=== PATIENT | female | born 1975 | race Caucasian/White ===

== ENCOUNTER 2023-05-18 10:45 | Emergency (ER) | payer OTHER, SELFPAY ==
--- NOTE | ~2023-05-18 | CT_ITS ---
EXAMINATION: CT HEAD WITHOUT CONTRAST CT CERVICAL SPINE WITHOUT CONTRAST CLINICAL INFORMATION: Head strike. COMPARISON: No relevant prior imaging. TECHNIQUE: Store Operations Manager images were obtained. CT imaging of the head and cervical spine was performed without contrast. Data was reformatted into multiplanar images at the acquisition workstation. This CT examination was performed using dose optimization techniques as appropriate, including one or more of the following: Automated exposure control, iterative reconstruction, and adjustment of technique factors (mA and/or kVp) according to patient size (this includes techniques or standardized protocols for targeted exams where dose is matched to indication/reason for exam). Fleischner Society criteria for the followup of incidental pulmonary nodules was implemented if appropriate. DLP: 932 mGy-cm. FINDINGS: Head: There is no acute intracranial hemorrhage or abnormal extra-axial collection. No intracranial mass effect or midline shift. Lateral and third ventricles are normal. No hydrocephalus. [place]-white matter differentiation is preserved and there is no evidence of acute territorial infarct. The calvarium and skull base are intact. Mastoid air cells and middle ear cavities are well aerated. No active paranasal sinus disease. Cervical spine: There is nonspecific reversal of the cervical lordosis. Alignment is otherwise normal. Vertebral body heights are preserved. No acute fracture. No abnormal prevertebral soft tissue swelling. C is not well assessed on this examination due to inherent limitations of CT without intrathecal contrast. Grossly no canal compromise. Asymmetric uncovertebral joint spurring causes moderate right neuroforaminal encroachment at C4-C5. Otherwise no substantial bony neuroforaminal encroachment. Visualized soft tissues of the neck are normal. Lung apices are clear. CT/CT head/brain wo IV con IMPRESSION: Head: Unremarkable CT scan of the head. No evidence of acute territorial infarct or hemorrhage. Cervical Spine: No acute fracture and no posttraumatic spinal subluxation. There is nonspecific reversal of the cervical lordosis. Grossly no evidence of canal compromise. Asymmetric uncovertebral joint spurring causes moderate right neuroforaminal encroachment at C4-C5.
--- NOTE | ~2023-05-18 | CT_ITS ---
EXAMINATION: CT HEAD WITHOUT CONTRAST CT CERVICAL SPINE WITHOUT CONTRAST CLINICAL INFORMATION: Head strike. COMPARISON: No relevant prior imaging. TECHNIQUE: Mathematical Scientist images were obtained. CT imaging of the head and cervical spine was performed without contrast. Data was reformatted into multiplanar images at the acquisition workstation. This CT examination was performed using dose optimization techniques as appropriate, including one or more of the following: Automated exposure control, iterative reconstruction, and adjustment of technique factors (mA and/or kVp) according to patient size (this includes techniques or standardized protocols for targeted exams where dose is matched to indication/reason for exam). Fleischner Society criteria for the followup of incidental pulmonary nodules was implemented if appropriate. DLP: 932 mGy-cm. FINDINGS: Head: There is no acute intracranial hemorrhage or abnormal extra-axial collection. No intracranial mass effect or midline shift. Lateral and third ventricles are normal. No hydrocephalus. [place]-white matter differentiation is preserved and there is no evidence of acute territorial infarct. The calvarium and skull base are intact. Mastoid air cells and middle ear cavities are well aerated. No active paranasal sinus disease. Cervical spine: There is nonspecific reversal of the cervical lordosis. Alignment is otherwise normal. Vertebral body heights are preserved. No acute fracture. No abnormal prevertebral soft tissue swelling. C is not well assessed on this examination due to inherent limitations of CT without intrathecal contrast. Grossly no canal compromise. Asymmetric uncovertebral joint spurring causes moderate right neuroforaminal encroachment at C4-C5. Otherwise no substantial bony neuroforaminal encroachment. Visualized soft tissues of the neck are normal. Lung apices are clear. CT/CT cervical spine wo IV con IMPRESSION: Head: Unremarkable CT scan of the head. No evidence of acute territorial infarct or hemorrhage. Cervical Spine: No acute fracture and no posttraumatic spinal subluxation. There is nonspecific reversal of the cervical lordosis. Grossly no evidence of canal compromise. Asymmetric uncovertebral joint spurring causes moderate right neuroforaminal encroachment at C4-C5.
[2023-05-18 11:06] VITALS: BP 156/87; PULSE 73; RESP 18; TEMP 36.9; O2SAT 100; BMI 30.7
--- NOTE | 2023-05-18 11:06 | ED.SYNCOPE ---
HPI - Syncope General Chief Complaint: Syncope Stated Complaint: Syncope 05/16 l Time Seen by Provider: 05/18/23 11:48 Source: patient, RN notes reviewed and old records reviewed Mode of arrival: ambulatory History of Present Illness HPI narrative: 47-year-old female with past medical history hypothyroid, HTN, presenting to the ED complaining of 2 syncopal episodes on 05/16/23 w/+head strike & LOC. Patient states initially stood up from living room and syncopized, witnessed by , striking posterior head. Denies seizure-like activity or incontinence/tongue biting. Admits afterwards continued to walk to kitchen & leaned over table and felt lightheaded/dizzy with mild nausea and syncopized again falling forward and then backwards with additional head strike. Reports mild headache and neck pain / soreness. Reports symptomatic improvement at present however call PCP today and they will not see her until she is evaluated at the ED. Denies vision change/ loss, CP/SOB, abdominal pain, nausea / vomiting, recent travel. Denies taking anticoagulation. MD complaint: loss of consciousness, felt faint and collapsed Onset (ago): day(s) Related Data Allergies Allergy/AdvReac Type Severity Reaction Status Date / Time No Known Allergies Allergy Verified 05/18/23 11:11 Review of Systems Review of Systems: Constitutional: No Fever, No Chills, No Fatigue, No Malaise ENT/Mouth: No Hearing loss, No Ear Pain, No Nasal Congestion, No Sinus Pain, No Hoarseness, No sore throat, No Rhinorrhea, No Swallowing Difficulty Eyes: No Eye Pain, No Swelling, No Redness, No Vision Changes Cardiovascular: No Chest Pain, No SOB, No Edema, No Palpitations Respiratory: No Cough, No Sputum, No Dyspnea Gastrointestinal: + Nausea, No Vomiting, No Diarrhea, No Constipation, No Abdominal pain Genitourinary: No irregular bleeding, No Dysuria, No Hematuria, No Urinary Incontinence/retention, No Flank Pain Musculoskeletal: No joint pain, + Myalgias, No Joint Swelling Skin: No Skin Lesions, No rash Neuro: No Weakness, No Numbness, No Paresthesias, +Loss of Consciousness, No Dizziness, +Headache Yes all other systems are reviewed and are negative Constitutional: Constitutional: Reports as per HPI Neurologic: Denies Abnormal speech present [facility] Past Medical History Attestation statement: The following information was validated with the patient. Source: old records reviewed Social History Social History Advance Directives: No Physical Exam Vital Signs: Vital Signs: Last Vital Signs Temp 98.4 F 05/18/23 11:06 Pulse 55 05/18/23 12:21 Resp 18 05/18/23 12:21 BP 120/68 05/18/23 12:21 Pulse Ox 99 05/18/23 12:21 O2 Del Method Room Air 05/18/23 12:21 BMI result Body Mass Index 30.7 Const: General: cooperative, healthy appearing, no acute distress, alert and awake Orientation/consciousness: patient oriented x3 Limitations: no limitations HEENT: Head: Yes normal to inspection, Yes atraumatic, No Mcghee's sign and No raccoon eyes Ears: hearing grossly normal bilaterally General nose exam: Normal external nose present Face and sinus: Yes normal facial exam Throat: Yes posterior oropharynx normal, Yes uvula midline, No uvula laterally displaced and No uvular edema Eyes: General: appearance normal, both eyes and all related structures Pupils: Equal, round and reactive pupils present EOM: EOMs intact bilaterally Neck: Neck: Yes normal visual inspection, Yes no meningeal signs and No anterior neck swelling Resp: Effort & Inspection: normal respiratory effort and no respiratory distress Auscultation: clear to auscultation bilaterally, no crackles and no wheezes Cardio: Rate: regular rate Heart sounds: S1 normal heart sound present and S2 normal heart sound present GI: Inspection: Yes normal to inspection Palpation (GI): Soft to palpation, nontender, no guarding and not rigid : General: Yes no CVA tenderness Back/Spine/Pelvis: Other: No midline cervical/thoracic/lumbar spinous tenderness/step-off or deformity Back: no CVA tenderness Skin: Rashes: no rashes Wounds: no wounds Neuro: General: patient oriented x3, gait normal, tone normal, moves all extremities, no meningeal signs, no focal motor deficits and CN's II-XI intact bilaterally Cranial nerves: Yes CN's II-XII intact bilaterally, Yes Equal, round and reactive pupils present and Yes Bilaterally intact EOM present Cognition (Neuro): normal cognition Speech: No Abnormal speech present Gait exam (Neuro): Normal gait present Motor exam (neuro): 5 motor strength present throughout and no tremor noted Extrem: General: Yes normal to inspection Course Course Course Narrative: This is an RME: Additional HPI, ROS, PE not included below will be deferred to primary provider. This is a [id number]-female, with a hx of hypertension, hypothyroidism, presenting to the emergency department with complaints of two episodes of syncope which occurred on thursday. Patient reports that on Thursday she had 2 episodes of syncope. Patient states that her witnessed these episodes. She believes that she struck the posterior head as she has some soreness on her posterior head. Patient states that the syncopal episodes for about 5 minutes apart. She admits that during the syncopal episode she did have some blurred vision. After these episodes her took her blood pressure in their 101/63 and 88/59. She is neurologically intact. No current pain. No chest pain or shortness of breath. Plan: EKG, labs, CT head, orthostatics -1305-- mild leukopenia 3.9. D-dimer WNL, PE unlikely - labs otherwise reassuring including negative troponin and hCG. Orthostatic vital signs negative -1532--CT head/brain wo IV con/CT cervical spine wo IV con IMPRESSION: Head: Unremarkable CT scan of the head. No evidence of acute territorial infarct or hemorrhage. Cervical Spine: No acute fracture and no posttraumatic spinal subluxation. There is nonspecific reversal of the cervical lordosis. Grossly no evidence of canal compromise. Asymmetric uncovertebral joint spurring causes moderate right neuroforaminal encroachment at C4-C5. Results discussed with patient including worrisome signs and symptoms and strict return precautions, and when to return to the emergency department. They verbalized understanding and feel safe for discharge at this time. Medications Administered Discontinued Medications Generic Name Dose Route Start Last Admin Trade Name Freq PRN Reason Stop Dose Admin Sodium Chloride 1,000 mls @ 999 mls/hr 05/18/23 12:15 05/18/23 15:14 Ns IV 05/18/23 13:15 Infused .Q1H1M EDILIA Infusion Medical Decision Making Medical Decision Making MDM Narrative: 47-year-old female with past medical history hypothyroid, HTN, presenting to the ED complaining of 2 syncopal episodes on 05/16/23 w/+head strike & LOC. Patient states initially stood up from living room and syncopized, witnessed by , striking posterior head. On exam vital signs stable, NAD, nontoxic appearing, no evidence of trauma, no midline spinous tenderness throughout or red flag symptoms. No incontinence or tongue biting. Abdomen soft -nontender. Concern for vasovagal syncope vs metabolic/infectious etiologies vs ?PE although denies SOB, no tachycardia/tachypnea or hypoxia. Low suspicion for dissection/ACS. rule out ICH /fracture. Lower suspicion for SAH plan: EKG, labs, UA, orthostatics, head/ C-spine CT, IVF, re-evaluate Please refer to course for remaining clinical decision making, interpretation of labs/imaging results, and discussions with consultants and/or family members. Differential Diagnosis Differential Diagnoses: The differential diagnosis associated with the presentation includes As above Admission/Observation Consideration of admission/observation: Escalation of care including admission/observation considered Lab Data MDM Lab Attestation statement: I reviewed the patient's lab results. 05/18/23 11:30 05/18/23 11:30 Labs: Lab Results 05/18/23 05/18/23 Range/Units 11:30 12:33 WBC 3.9 L (4.8-10.8) X10*3/uL RBC 4.35 (4.20-5.50) X10*6/uL Hgb 13.9 (12.0-16.0) g/dl Hct 40.2 (37.0-47.0) % MCV 92.4 (80.0-98.0) fL MCH 32.0 (27.0-33.0) pg MCHC 34.6 (31.0-35.0) g/dl RDW 12.4 (11.0-16.0) % Plt Count 193 (160-400) X10*3/uL MPV 9.6 (9.4-12.3) fL Immature Gran % (Auto) 0.3 (0.0-0.4) % Neut % (Auto) 57.8 (45-73) % Lymph % (Auto) 32.6 (20-40) % [place] % (Auto) 7.3 (2-11) % Eos % (Auto) 1.0 (0-4) % Baso % (Auto) 1.0 (0-2) % Lymph # (Auto) 1.3 (1.2-4.9) X10*3/uL [place] # (Auto) 0.3 (0.1-1.2) X10*3/uL Eos # (Auto) 0.0 (0.0-0.4) X10*3/uL Baso # (Auto) 0.0 (0.0-0.2) X10*3/uL Abs Immat Gran (auto) 0.01 (0.00-0.03) X10*3/uL Absolute Neuts (auto) 2.2 (2.0-8.3) x10*3/uL Absolute Nucleated RBC 0.000 (0.0-0.012) X10*3/uL Nucleated RBC % (auto) 0.0 (0.0-0.2) /100WBC D-Dimer High Sensitivty < 150 NG/ML Sodium 138 (135-145) mmol/L Potassium 3.8 (3.3-5.1) mmol/L Chloride 107 (96-108) mmol/L Carbon Dioxide 26 (22-29) mmol/L Anion Gap 9 L (12-20) BUN 10 (9-16) mg/dL Creatinine 0.71 (0.5-1.4) mg/dL Estim Creat Clear Calc 98.2 Estimated GFR > 60 Random Glucose 82 (60-115) mg/dL Calcium 9.0 (8.4-10.2) mg/dL Magnesium 1.9 (1.6-2.6) mg/dL Total Bilirubin 0.6 (0.0-1.0) mg/dL Direct Bilirubin 0.2 (0.0-0.5) mg/dL AST 14 (5-31) U/L ALT 10 (0-31) U/L Alkaline Phosphatase 46 (39-117) U/L Troponin I High Sens < 2.7 (<3.5-17.0) ng/L Total Protein 6.9 (6.5-8.0) g/dL Albumin 3.9 (3.5-5.0) g/dL Beta HCG, Quant < 2 mIU/mL Independent Interpretation I performed an independent interpretation of an: EKG ( my interpretation EKG sinus bradycardia rate of 58. QRS 80. QTC 384. No STEMI. No priors to compare) Radiology Impression Discussion of test interpretation with radiology: I have reviewed the radiologist's reading. External Record Review External record reviewed: Inpatient record, Office record, Outpatient record, Prior outpatient labs, Prior outpatient radiology, Primary care record and Outside ED record Tests considered The following testing was considered but not selected: As above Discharge Plan Discharge Clinical Impression: Vasovagal syncope Patient Disposition: Home, Self-Care Instructions: Syncope (DC) Additional Instructions: your blood work is reassuring. Head CT is unremarkable. your cervical spine CT shows some neuroforaminal encroachment on C4/C5, follow-up with her PCP make sure your staying hydrated. Change positions slowly Follow-up with your doctor Symptoms persistent worsening of recurrent passing out episodes please return to the emergency department Referrals: Chay Betts III, MD [Primary Care Provider] - 3 days Interventions: ED Discharge Assessment Last Done: 05/18/23 15:57 Discharge Date/Time: 05/18/23 15:57
--- NOTE | 2023-05-18 11:14 | ECG_ITS ---
Test Reason : syncope Blood Pressure : / mmHG Vent. Rate : 058 BPM Atrial Rate : 058 BPM P-R Int : 180 ms QRS Dur : 080 ms QT Int : 392 ms P-R-T Axes : 032 011 005 degrees QTc Int : 384 ms Sinus bradycardia Otherwise normal ECG No previous ECGs available Referred By: Ayesha King Electronically Signed By:ANABELLA BENEDICT MD
[2023-05-18 11:34] LABS: MANUAL DIFF FLAG NO
[2023-05-18 11:36] LABS: Hematocrit 40.2 % (37.0-47.0); Hemoglobin 13.9 g/dl (12.0-16.0); Imm Gran Abs Auto 0.01 X10*3/uL (0.00-0.03); Imm Gran Pct Auto 0.3 % (0.0-0.4); Lymphocytes Absolute Auto 1.3 X10*3/uL (1.2-4.9); Lymphocytes Percent Auto 32.6 % (20-40); Mean Corpuscular HGB Conc 34.6 g/dl (31.0-35.0); Mean Corpuscular Volume 92.4 fL (80.0-98.0); Mean Platelet Volume 9.6 fL (9.4-12.3); Monocytes Absolute Auto 0.3 X10*3/uL (0.1-1.2); Monocytes Percent Auto 7.3 % (2-11); Neutrophils Absolute Auto 2.2 x10*3/uL (2.0-8.3); Neutrophils Percent Auto 57.8 % (45-73); Platelet Count 193 X10*3/uL (160-400); Red Blood Count 4.35 X10*6/uL (4.20-5.50); Red Cell Distribution Width 12.4 % (11.0-16.0); White Blood Count 3.9 X10*3/uL (4.8-10.8)
[2023-05-18 11:53] VITALS: BP 115/65; BP 127/66; PULSE 58; PULSE 59; RESP 14; O2SAT 99
[2023-05-18 11:55] VITALS: BP 126/77; BP 155/93; PULSE 58; PULSE 67
[2023-05-18 11:56] LABS: Alanine Aminotransferase 10 U/L (0-31); Albumin Level 3.9 g/dL (3.5-5.0); Alkaline Phosphatase 46 U/L (39-117); Anion Gap 9 (12-20); Aspartate Amino Transferase 14 U/L (5-31); Bilirubin Direct 0.2 mg/dL (0.0-0.5); Bilirubin Total 0.6 mg/dL (0.0-1.0); Blood Urea Nitrogen 10 mg/dL (9-16); Carbon Dioxide 26 mmol/L (22-29); Chloride 107 mmol/L (96-108); Creatinine Clr Calc Pharmacy 98.2; Estimated Glomerular Filt Rate > 60; Glucose Random 82 mg/dL (60-115); Magnesium 1.9 mg/dL (1.6-2.6); Potassium 3.8 mmol/L (3.3-5.1); Sodium 138 mmol/L (135-145); Total Protein 6.9 g/dL (6.5-8.0)
[2023-05-18 11:58] LABS: HCG Quantitative < 2 mIU/mL; Troponin-I High Sensitivity < 2.7 ng/L (<3.5-17.0)
[2023-05-18 12:21] VITALS: BP 120/68; PULSE 55; RESP 18; O2SAT 99
[2023-05-18] MEDS: 0.9 % Sodium Chloride 1,000 ML 999 ML IV (12:35)
--- NOTE | 2023-05-18 12:40 | PC.NURSE ---
20g iv inserted LAC. fluids hung as documented. denies pain, vss.
[2023-05-18 12:46] LABS: D Dimer High Sensitivity < 150 NG/ML
== END 2023-05-18 15:57 | disposition home or self-care (01) ==
PROVIDERS: Physician Assistant; Physician Assistant Medical; Emergency Provider Student in an Organized Health Care Education/Training Program; PCP Internal Medicine
DX: R55 Syncope and collapse (principal); R11.2 Nausea with vomiting, unspecified; R00.1 Bradycardia, unspecified; M54.2 Cervicalgia; Z79.899 Other long term (current) drug therapy
CPT/HCPCS: 36415; 70450; 72125; 80048; 80076; 83735; 84484; 84702; 85025; 85379; 93005; 96360; 96361; 99284

== ENCOUNTER 2023-06-07 19:13 | Emergency (ER) | payer OTHER, SELFPAY ==
--- NOTE | ~2023-06-07 | XR_ITS ---
EXAMINATION: XR FOOT, LEFT CLINICAL INFORMATION: Acute pain and swelling COMPARISON: None available. TECHNIQUE: AP, lateral, and oblique views of the left foot. FINDINGS: Degenerative changes are present at the first and second MTP joints with osteophytes. There is minimal hallux valgus. No acute fractures are seen. A plantar calcaneal spur is present as is enthesopathy at the Achilles tendon insertion. No ankle joint effusion. XR/XR foot LT min 3V IMPRESSION: Degenerative changes as described above. No acute fracture.
--- NOTE | ~2023-06-07 | US_ITS ---
EXAMINATION: US VENOUS ULTRASOUND WITH DOPPLER LOWER EXTREMITY, LEFT CLINICAL INFORMATION: Pain and swelling. COMPARISON: None available. TECHNIQUE: Ultrasound of the deep veins is performed from the hip to the calf with compression sonography and color and pulse Doppler assessment. Spectral analysis with color-flow imaging is performed. FINDINGS: There is normal venous compression and respiratory variation and augmented flow. The visualized common femoral vein, superficial femoral vein, profunda femoral vein, popliteal vein, and the trifurcation region shows no evidence of deep venous thrombosis. There is no significant popliteal fossa cyst. Prominent left groin lymph nodes are noted. There is a 4.1 x 1.1 x 1.1 cm essentially anechoic subcutaneous structure/collection along the medial distal ankle without associated flow.. If the patient's symptoms persist, followup ultrasound in 5 days 7 days might be of value to exclude proximal propagation from a non-visualized calf vein. US/US venous duplex LE IMPRESSION: No DVT demonstrated in the left lower extremity. 4.1 x 1.1 x 1.1 cm collection lower medial ankle possibly a small hematoma of uncertain acuity. Correlation needed.
--- NOTE | ~2023-06-07 | XR_ITS ---
EXAMINATION: XR CHEST CLINICAL INFORMATION: Chest pain COMPARISON: None available. TECHNIQUE: 2 views of the chest were obtained. FINDINGS: No significant abnormality is noted involving the heart, lungs, mediastinum, bony thorax or soft tissues. XR/XR chest 2V IMPRESSION: Unremarkable examination.
[2023-06-07 19:27] VITALS: BP 162/100; PULSE 70; RESP 18; TEMP 36.9; O2SAT 100; BMI 29.6
[2023-06-07 23:00] VITALS: BP 123/76; PULSE 59; RESP 16; TEMP 37.1; O2SAT 97
--- NOTE | 2023-06-07 23:48 | ED_ITS ---
HPI - General Adult General Chief complaint: General Medical Stated complaint: left foot swelling 1wk/hard time breathing started Time Seen by Provider: 06/07/23 23:01 Source: patient, family () and RN notes reviewed Mode of arrival: ambulatory Limitations: no limitations History of Present Illness HPI narrative: 47-year-old female with past medical history significant for hypertension, hypothyroidism presents for evaluation of left foot pain and swelling. Patient states that the foot started to swell 6 days ago. She denies any recent trauma to the foot. She did present to this ED on 05/18/2023, 18 days ago for a syncopal episode happened 2 days prior to that visit She did not have any foot pain or swelling at that time The patient was worked up for syncope and ultimately discharged home. She had labs including D-dimer, CT head and C-spine, EKG, and was ultimately discharged home. Patient reports that she works at [employer] and is on her feet all day throughout her shift She has pain mostly to the left byrne and this is sometimes itchy. She also reports swelling to the top of the left foot Related Data Allergies Allergy/AdvReac Type Severity Reaction Status Date / Time No Known Allergies Allergy Verified 06/07/23 19:33 Review of Systems 2 Constitutional: Constitutional: Denies chills and Denies fever(s) ENT: Denies sore throat Cardiovascular: Cardiovascular: Reports chest pain and Reports dyspnea Respiratory: Respiratory: Denies cough and Reports dyspnea Gastrointestinal: Gastrointestinal: Denies abdominal pain, Denies nausea and Denies vomiting Musculoskeletal: Musculoskeletal: Reports back pain Integumentary/Breasts: Skin/Breast: Denies rash PMFSH Social History Social History Advance Directives: No Advance Directives Information Provided: Yes Physical Exam ED Vital Signs: Vital Signs - 24 hr 06/07/23 19:27 06/07/23 23:00 06/08/23 00:00 Temperature 98.4 F 98.7 F 97.9 F Pulse Rate 70 59 57 Respiratory Rate 18 16 16 Blood Pressure 162/100 H 123/76 116/79 Pulse Oximetry 100 97 98 Oxygen Delivery Method Room Air Room Air Room Air BMI result Body Mass Index 29.6 Const General: healthy appearing, comfortable, no acute distress, alert and awake Nutritional Appearance: well nourished Orientation/consciousness: patient oriented x3 HENMT Head: Yes normocephalic and Yes atraumatic Eyes Eyelids: Yes eyelids normal Conjunctivae: conjunctivae normal Sclerae: sclerae normal Corneas: corneas normal Pupils: Equal, round and reactive pupils present EOM: EOMs intact bilaterally Neck Neck: Yes full ROM Resp Effort & Inspection: normal respiratory effort, able to speak in complete sentences, no audible wheezes and not labored Auscultation: clear to auscultation bilaterally Cardio Rate: regular rate Rhythm: regular rhythm Skin General skin exam: elasticity normal Neuro General: patient oriented x3 Cranial nerves: Yes Equal, round and reactive pupils present and Yes Bilaterally intact EOM present Cognition (Neuro): normal cognition Extrem Other: Patient has mild edema to the dorsal left foot. There is maybe trace edema to the distal left lower extremity. No pitting. No calf tenderness or palpable cords. The patient does have mild tenderness in the posterior knee/popliteal fossa. Course Reevaluation(s) Reevaluation #1: Patient's ultrasound of the leg shows a 4 cm fluid collection to the medial left ankle. This is most consistent with a hematoma. The patient has no erythema, increased warmth to suggest infection. The rest of the workup was unremarkable. Patient will be discharged to follow-up with PCP. She had negative D-dimer 18 days ago, no evidence of DVT Time: 01:37 Medical Decision Making Medical Decision Making [facility] Narrative: 47-year-old female presents for evaluation of atraumatic left lower extremity swelling, is available chest pain. She was seen here 18 days ago for syncope. She had negative workup at that time. Will repeat labs. Would ultrasound left lower extremity to rule out DVT but she did have a negative D-dimer 18 days ago. Currently patient is asymptomatic. Her vital signs are within normal limits therefore making PE less likely. Further workup as indicated by results and patient course Differential Diagnosis Differential Diagnoses: The differential diagnosis associated with the presentation includes Like edema Dependent edema DVT Peripheral vascular disease Lymphedema PE Moreno cyst Lab Data [facility] Lab Attestation statement: I reviewed the patient's lab results. No leukocytosis. The patient is a mild leukopenia to 4.2. This is slightly improved to the her visit from 2 and half weeks ago. No anemia. No significant electrolyte abnormalities. Negative BNP, negative troponin 06/08/23 00:16 06/08/23 00:16 Labs: Lab Results 06/08/23 06/08/23 Range/Units 00:16 00:36 WBC 4.2 L (4.8-10.8) X10*3/uL RBC 4.40 (4.20-5.50) X10*6/uL Hgb 14.3 (12.0-16.0) g/dl Hct 40.8 (37.0-47.0) % MCV 92.7 (80.0-98.0) fL MCH 32.5 (27.0-33.0) pg MCHC 35.0 (31.0-35.0) g/dl RDW 12.1 (11.0-16.0) % Plt Count 215 (160-400) X10*3/uL MPV 9.8 (9.4-12.3) fL Immature Gran % (Auto) 0.2 (0.0-0.4) % Neut % (Auto) 47.7 (45-73) % Lymph % (Auto) 41.0 H (20-40) % [place] % (Auto) 8.5 (2-11) % Eos % (Auto) 1.9 (0-4) % Baso % (Auto) 0.7 (0-2) % Lymph # (Auto) 1.7 (1.2-4.9) X10*3/uL [place] # (Auto) 0.4 (0.1-1.2) X10*3/uL Eos # (Auto) 0.1 (0.0-0.4) X10*3/uL Baso # (Auto) 0.0 (0.0-0.2) X10*3/uL Abs Immat Gran (auto) 0.01 (0.00-0.03) X10*3/uL Absolute Neuts (auto) 2.0 (2.0-8.3) x10*3/uL Absolute Nucleated RBC 0.000 (0.0-0.012) X10*3/uL Nucleated RBC % (auto) 0.0 (0.0-0.2) /100WBC PT 11.3 (11.1-13.3) SEC INR 0.9 (0.9-1.1) APTT 34.2 (26.0-36.4) SEC Sodium 137 (135-145) mmol/L Potassium 3.8 (3.3-5.1) mmol/L Chloride 105 (96-108) mmol/L Carbon Dioxide 25 (22-29) mmol/L Anion Gap 11 L (12-20) BUN 16 (9-16) mg/dL Creatinine 0.73 (0.5-1.4) mg/dL Estim Creat Clear Calc 93.8 Estimated GFR > 60 Random Glucose 82 (60-115) mg/dL Calcium 8.8 (8.4-10.2) mg/dL Total Bilirubin 0.5 (0.0-1.0) mg/dL AST 14 (5-31) U/L ALT 8 (0-31) U/L Alkaline Phosphatase 43 (39-117) U/L Troponin I High Sens < 2.7 (<3.5-17.0) ng/L B-Natriuretic Peptide 10 (<100) pg/mL Total Protein 7.1 (6.5-8.0) g/dL Albumin 4.1 (3.5-5.0) g/dL Beta HCG, Quant < 2 mIU/mL Urine Color Yellow Urine Appearance Clear Urine pH 6.0 (5.0-9.0) Ur Specific [place] 1.020 (1.005-1.025) Urine Protein Negative (Neg-Trace) mg/dL Urine Glucose (UA) Negative (Negative) mg/dL Urine Ketones Negative (Negative) mg/dL Urine Blood Negative (Negative) Urine Nitrite Negative (Negative) Ur Leukocyte Esterase Negative (Negative) Urine RBC 3-5 H (0-2) /HPF Urine WBC 0-5 (0-5) /HPF Ur Squamous Epith Cells 3-5 (0-2) /HPF Urine Bacteria None Seen (None Seen) Hyaline Casts 0-2 (0-2) /LPF Independent Interpretation I performed an independent interpretation of an: Plain X-Ray (Chest x-ray is clear, foot x-ray without evidence of fracture.) Radiology Impression Discussion of test interpretation with radiology: I have reviewed the radiologist's reading. Radiologist Impression: Chest x-ray is unremarkable Foot x-ray shows degenerative changes, no acute fracture Ultrasound of lower extremity shows 4.1 x 1.1 x 1.1 cm collection left medial ankle possibly a small hematoma Discharge Plan Discharge Clinical Impression: Hematoma of left lower extremity Patient Disposition: Home, Self-Care Instructions: Contusion in Adults (ED) Additional Instructions: Your workup in the ER today was reassuring. Your ultrasound did show what looks to be a 4 cm hematoma in the area of swelling to your left foot/ankle There is no evidence of DVT/blood clots Follow-up with your primary doctor Elevate the leg above your heart and apply ice every 4 hours for 10-15 minutes
[2023-06-08] VITALS: BP 116/79; PULSE 57; RESP 16; TEMP 36.6; O2SAT 98
[2023-06-08 00:23] LABS: MANUAL DIFF FLAG NO
[2023-06-08 00:25] LABS: Basophils Percent Auto 0.7 % (0-2); Eosinophils Absolute Auto 0.1 X10*3/uL (0.0-0.4); Eosinophils Percent Auto 1.9 % (0-4); Hematocrit 40.8 % (37.0-47.0); Hemoglobin 14.3 g/dl (12.0-16.0); Imm Gran Abs Auto 0.01 X10*3/uL (0.00-0.03); Imm Gran Pct Auto 0.2 % (0.0-0.4); Lymphocytes Absolute Auto 1.7 X10*3/uL (1.2-4.9); Mean Corpuscular Hemoglobin 32.5 pg (27.0-33.0); Mean Corpuscular Volume 92.7 fL (80.0-98.0); Mean Platelet Volume 9.8 fL (9.4-12.3); Monocytes Absolute Auto 0.4 X10*3/uL (0.1-1.2); Monocytes Percent Auto 8.5 % (2-11); Neutrophils Percent Auto 47.7 % (45-73); Platelet Count 215 X10*3/uL (160-400); Red Cell Distribution Width 12.1 % (11.0-16.0); White Blood Count 4.2 X10*3/uL (4.8-10.8)
[2023-06-08 00:33] LABS: INTERNATIONAL NORM RATIO 0.9 (0.9-1.1); Prothrombin Time 11.3 SEC (11.1-13.3)
[2023-06-08 00:36] LABS: Partial Thromboplastin Time 34.2 SEC (26.0-36.4)
[2023-06-08 00:42] LABS: Appearance Urine Clear; Color Urine Yellow; Glucose Urine UA Negative (Negative); Leukocyte Esterase Urine Negative (Negative); Nitrite Urine Negative (Negative); Urine Blood Negative (Negative); Urine Ketones Negative (Negative); Urine Protein Negative (Neg-Trace)
[2023-06-08 00:44] LABS: B Type Natriuretic Peptide 10 pg/mL (<100); HCG Quantitative < 2 mIU/mL; Troponin-I High Sensitivity < 2.7 ng/L (<3.5-17.0)
[2023-06-08 00:47] LABS: Bacteria Urine None Seen (None Seen); Hyaline Casts Urine 0-2 /LPF (0-2); WBC Urine 0-5 /HPF (0-5)
[2023-06-08 01:34] LABS: Alanine Aminotransferase 8 U/L (0-31); Albumin Level 4.1 g/dL (3.5-5.0); Alkaline Phosphatase 43 U/L (39-117); Anion Gap 11 (12-20); Aspartate Amino Transferase 14 U/L (5-31); Bilirubin Total 0.5 mg/dL (0.0-1.0); Blood Urea Nitrogen 16 mg/dL (9-16); Calcium 8.8 mg/dL (8.4-10.2); Carbon Dioxide 25 mmol/L (22-29); Chloride 105 mmol/L (96-108); Creatinine Clr Calc Pharmacy 93.8; Estimated Glomerular Filt Rate > 60; Glucose Random 82 mg/dL (60-115); Potassium 3.8 mmol/L (3.3-5.1); Sodium 137 mmol/L (135-145); Total Protein 7.1 g/dL (6.5-8.0)
== END 2023-06-08 02:41 | disposition home or self-care (01) ==
PROVIDERS: Physician Assistant; Emergency Provider Emergency Medicine; PCP Internal Medicine
DX: S80.12XA Contusion of left lower leg, initial encounter (principal); R60.0 Localized edema; I10 Essential (primary) hypertension; M79.672 Pain in left foot; R07.89 Other chest pain; R06.02 Shortness of breath; X58.XXXA Exposure to other specified factors, initial encounter; Y93.9 Activity, unspecified; Y92.9 Unspecified place or not applicable; Y99.9 Unspecified external cause status; Z79.899 Other long term (current) drug therapy
CPT/HCPCS: 36415; 71046; 73630; 80053; 81001; 83880; 84484; 84702; 85025; 85610; 85730; 93971; 99284

== ENCOUNTER 2024-02-20 08:39 | Inpatient (IN) | payer OTHER, SELFPAY ==
[2024-02-20] VITALS (9 sets, daily range): BP systolic 103–139; BP diastolic 50–88; PULSE 54–75; RESP 12–18; TEMP 36.5–37.3; O2SAT 97–99; BMI 30.1
--- NOTE | ~2024-02-20 | CT_ITS ---
EXAMINATION: CTA head and neck with and without contrast CLINICAL INFORMATION: Headache, neck pain, dizziness, off balance COMPARISON: None available. TECHNIQUE: Test bolus sequences followed by intravenous administration of 70 mL of Omnipaque 350 contrast. Helical imaging was performed in the axial plane from the skull vertex to the thoracic inlet. Delayed postcontrast imaging of the head was also performed. The data was processed at the arrt technologist workstation for generation of MIP sequences. Angled MIPs and volume rendered reformatted images were also generated at an offline 3D workstation. Stenoses are assessed in accordance with NASCET criteria unless otherwise indicated. This CT examination was performed using dose optimization techniques as appropriate, variously including the following: *Automated exposure control *Adjustment of mA and/or kV according to patient size (this includes techniques or standardized protocols for targeted exams where dose is matched to indication/reason for exam; i.e. extremities or head) *Use of iterative reconstruction technique DLP: 2095 mGy-cm FINDINGS: BRAIN: No acute intracranial hemorrhage or infarct. The badillo-white matter differentiation is preserved. No midline shift or hydrocephalus. No acute extra-axial fluid collection. The osseous structures are unremarkable. No orbital pathology. The paranasal sinuses and mastoid air cells are clear. CTA NECK: Common origin of the innominate and left common carotid artery, normal variant. The innominate and bilateral subclavian arteries are patent. The origins and cervical segments of the common carotid arteries as well as the common carotid artery bifurcations are patent bilaterally. The cervical segments of the internal carotid arteries are also patent bilaterally. Nondominant left vertebral artery. The origins of the vertebral arteries are patent bilaterally. There is asymmetrically low contrast attenuation through the entire segment of the left cervical vertebral artery with near complete loss of contrast opacification within the mid to distal left V2 and complete occlusion of the entire segment of the left intracranial vertebral artery. No other site of hemodynamically significant stenosis, dissection: or aneurysm. The visualized branches of the external carotid arteries are unremarkable. CTA HEAD: Anterior circulation: The petrous, cavernous, and supraclinoid segments of the internal carotid arteries are patent bilaterally. The major branches of the anterior and middle cerebral arteries as well as the anterior communicating artery complex are patent. No large vessel occlusion, saccular aneurysm, or dissection. Posterior circulation: There is complete occlusion of the left intracranial vertebral artery with reconstitution in the right distal left V4. The right intracranial vertebral artery is normal in caliber and patent. The basilar artery is normal in caliber and course. The posterior cerebral and superior cerebellar arteries arise normally from the basilar summit. No aneurysm. On delayed imaging, the venous structures demonstrate normal contrast opacification. No filling defect. No abnormal intraparenchymal enhancement. Soft tissues: No suspicious neck mass or cervical adenopathy. Lungs: Clear. Bones: No acute osseous abnormality. No lytic or blastic osseous lesions. CT/CT angio head neck IMPRESSION: -CT head demonstrates no acute intracranial hemorrhage or infarct. 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 No other site of large vessel occlusion or hemodynamically significant stenosis.
--- NOTE | ~2024-02-20 | MR_ITS ---
EXAMINATION: MR BRAIN WITHOUT CONTRAST CLINICAL INFORMATION: Left vertebral artery occlusion,? CVA COMPARISON: CTA head and neck with and without contrast same day TECHNIQUE: MRI of the brain was obtained using routine sequences without contrast. FINDINGS: No acute intracranial hemorrhage or infarct. Several scattered periventricular and deep white matter T2/FLAIR hyperintensities. No midline shift or hydrocephalus. No acute extra-axial fluid collections. The osseous structures are unremarkable. The pituitary gland, pineal gland and remaining midline structures are unremarkable. No orbital pathology. The paranasal sinuses and mastoid air cells are clear. MR/MR head/brain wo con IMPRESSION: -No acute intracranial hemorrhage or infarct. -Several scattered periventricular and deep white matter T2/FLAIR hyperintensities are nonspecific but can be seen in the setting of chronic microvascular ischemic disease.
--- NOTE | 2024-02-20 08:55 | ED.GENADULT ---
HPI - General Adult General Chief complaint: Dizziness Stated complaint: dizzy off balance Time Seen by Provider: 02/20/24 08:54 Source: patient, RN notes reviewed and old records reviewed History of Present Illness ED Provider: Aline Mackenzie PA-C HPI narrative: 48-year-old female with past medical history of hypothyroid and hypertension, presenting to the ED complaining acute on chronic neck pain/stiffness x 2 days with associated headache and room spinning dizziness/off balance since this morning at 02:00AM. Reports episode blurry vision which is resolved at present, nausea, chills and diaphoresis. Denies vision loss, vomiting, CP/SOB, back pain Related Data Allergies Allergy/AdvReac Type Severity Reaction Status Date / Time No Known Allergies Allergy Verified 02/20/24 08:46 Review of Systems Review of Systems: Constitutional: No Fever, + Chills, + diaphoresis ENT/Mouth: No Ear Pain, No Nasal Congestion, No sore throat, No Rhinorrhea, No Swallowing Difficulty Cardiovascular: No Chest Pain, No SOB Respiratory: No Cough Gastrointestinal: + Nausea, No Vomiting, No Diarrhea, No Constipation, No Abdominal pain Genitourinary: No Dysuria, No Urinary Frequency, No Hematuria, No Urinary Incontinence/retention Musculoskeletal: No joint pain, No Myalgias, No Joint Swelling Skin: No Skin Lesions, No rash Neuro: No Weakness, No Numbness, No Paresthesias, +YOU, + dizziness, + off balance Yes all other systems are reviewed and are negative Constitutional: Constitutional: Reports as per [facility] Past Medical History Attestation statement: The following information was validated with the patient. Source: old records reviewed Social History Social History Advance Directives: No Advance Directives Information Provided: Yes Do you have a plan to hurt others: No Plan Physical Exam ED Vital Signs: Vital Signs - 24 hr 02/20/24 08:42 02/20/24 09:22 02/20/24 11:48 Temperature 97.7 F Pulse Rate 63 54 57 Respiratory Rate 18 Blood Pressure 137/85 113/68 139/85 Pulse Oximetry 99 Oxygen Delivery Method Room Air 02/20/24 11:48 Temperature Pulse Rate 54 Respiratory Rate Blood Pressure 139/82 Pulse Oximetry Oxygen Delivery Method BMI result Body Mass Index 30.1 Const General: cooperative, healthy appearing, no acute distress, alert and awake Orientation/consciousness: patient oriented x3 Limitations: no limitations HENMT Head: Yes normal to inspection and Yes atraumatic Ears: hearing grossly normal bilaterally General nose exam: Normal external nose present Face and sinus: Yes normal facial exam Throat: Yes posterior oropharynx normal, Yes tonsils normal, Yes uvula midline and No peritonsillar mass Eyes General: appearance normal, both eyes and all related structures Pupils: Equal, round and reactive pupils present EOM: EOMs intact bilaterally Neck Other: No midline cervical spinous tenderness or reproducible MSK/paraspinal tenderness. + pain elicited with rightward rotation of neck Neck: Yes normal visual inspection and Yes no meningeal signs Resp Effort & Inspection: normal respiratory effort and no respiratory distress Auscultation: clear to auscultation bilaterally Cardio Rate: regular rate Heart sounds: S1 normal heart sound present and S2 normal heart sound present GI Inspection: Yes normal to inspection Palpation (GI): Soft to palpation, nontender, no guarding and not rigid Skin Rashes: no rashes Wounds: no wounds Neuro General: patient oriented x3, tone normal, moves all extremities, no meningeal signs, no focal motor deficits and CN's II-XI intact bilaterally Cranial nerves: Yes CN's II-XII intact bilaterally and Yes Equal, round and reactive pupils present Gait exam (Neuro): Other gait observations present (Ambulating with slow cautious gait. No ataxia) Motor exam (neuro): 5/5 motor strength present throughout, Pronator motor function not present and no tremor noted Coordination: [id number] test normal Romberg Test: Negative Extrem General: Yes normal to inspection and Yes no pedal edema NIH Stroke Scale Internal: Initial- Upon Arrival Level of Consciousness: Alert Level of Consciousness Questions: Answers both questions correctly Level of Consciousness Commands: Performs both tasks correctly Best Gaze: Normal Visual: No visual loss Facial Palsy: Normal Motor Arm (Right): No drift Motor Arm (Left): No drift Motor Leg (Right): No drift Motor Leg (Left): No drift Limb Ataxia: Absent Sensory: Normal Best Language: No aphasia Dysarthia: Normal Extinction and Inattention: No abnormality Score: 0 Course Course Course Narrative: -labs unremarkable. Viral studies negative CT angio head neck IMPRESSION: -CT head demonstrates no acute intracranial hemorrhage or infarct. 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 No other site of large vessel occlusion or hemodynamically significant stenosis. > case discussed with Neurology, Dr. Cohn who recommended admission for brain MRI and initiation of low-dose ASA and Plavix. -will admit to hospitalist service Medications Administered Discontinued Medications Generic Name Dose Route Start Last Admin Trade Name Arthur PRN Reason Stop Dose Admin Acetaminophen 975 mg 02/20/24 09:21 02/20/24 10:08 Acetaminophen 325 Mg Tablet PO 02/20/24 09:22 975 mg ONCE ONE Administration Sodium Chloride 1,000 mls @ 999 mls/hr 02/20/24 09:30 02/20/24 09:36 Ns IV 02/20/24 10:30 999 mls/hr .Q1H1M EDILIA Administration Iohexol 70 ml 02/20/24 10:46 02/20/24 10:46 Iohexol 350 Mg/Ml 100 Ml Infus..Btl IV 02/20/24 10:47 70 ml ONCE ONE Administration Meclizine HCl 25 mg 02/20/24 09:51 02/20/24 10:08 Meclizine Hcl 25 Mg Tablet PO 02/20/24 09:52 25 mg ONCE ONE Administration Medical Decision Making Medical Decision Making MDM Narrative: 48-year-old female with past medical history of hypothyroid and hypertension, presenting to the ED complaining acute on chronic neck pain/stiffness x 2 days with associated headache and room spinning dizziness/off balance since this morning at 02:00AM. On exam vital signs stable, NAD, nontoxic appearing, no focal neuro deficits, ambulating with slow steady gait without ataxia. No midline spinous tenderness Exam otherwise nonfocal. Concern for cervical strain/spasming vs BPPV vs migraine headache vs cervical dissection vs CVA. Unlikely TIA or ACS. Lower suspicion for CVT. NIHSS=0 Plan: EKG, labs, UA, orthostatics, CTA head and neck, IVF, symptomatic remedies, re-evaluate Please refer to course for remaining clinical decision making, interpretation of labs/imaging results, and discussions with consultants and/or family members. Differential Diagnosis Differential Diagnoses: The differential diagnosis associated with the presentation includes As above Admission/Observation Consideration of admission/observation: Escalation of care including admission/observation considered Lab Data MDM Lab Attestation statement: I reviewed the patient's lab results. 02/20/24 09:35 02/20/24 09:35 Labs: Lab Results 02/20/24 02/20/24 Range/Units 08:52 09:35 WBC 4.0 L (4.8-10.8) X10*3/uL RBC 4.58 (4.20-5.50) X10*6/uL Hgb 14.6 (12.0-16.0) g/dl Hct 41.7 (37.0-47.0) % MCV 91.0 (80.0-98.0) fL MCH 31.9 (27.0-33.0) pg MCHC 35.0 (31.0-35.0) g/dl RDW 11.9 (11.0-16.0) % Plt Count 230 (160-400) X10*3/uL MPV 9.3 L (9.4-12.3) fL Immature Gran % (Auto) 0.2 (0.0-0.4) % Neut % (Auto) 79.8 H (45-73) % Lymph % (Auto) 14.6 L (20-40) % [place] % (Auto) 4.7 (2-11) % Eos % (Auto) 0.2 (0-4) % Baso % (Auto) 0.5 (0-2) % Lymph # (Auto) 0.6 L (1.2-4.9) X10*3/uL [place] # (Auto) 0.2 (0.1-1.2) X10*3/uL Eos # (Auto) 0.0 (0.0-0.4) X10*3/uL Baso # (Auto) 0.0 (0.0-0.2) X10*3/uL Abs Immat Gran (auto) 0.01 (0.00-0.03) X10*3/uL Absolute Neuts (auto) 3.2 (2.0-8.3) x10*3/uL Absolute Nucleated RBC 0.000 (0.0-0.012) X10*3/uL Nucleated RBC % (auto) 0.0 (0.0-0.2) /100WBC PT 11.4 (11.1-13.3) SEC INR 0.9 (0.9-1.1) Sodium 141 (135-145) mmol/L Potassium 4.2 (3.3-5.1) mmol/L Chloride 108 (96-108) mmol/L Carbon Dioxide 26 (22-29) mmol/L Anion Gap 11 L (12-20) BUN 16 (9-16) mg/dL Creatinine 0.70 (0.5-1.4) mg/dL Estim Creat Clear Calc 97.7 Estimated GFR > 60 Random Glucose 127 H (60-115) mg/dL Calcium 8.9 (8.4-10.2) mg/dL Magnesium 1.9 (1.6-2.6) mg/dL Total Bilirubin 0.6 (0.0-1.0) mg/dL Direct Bilirubin 0.2 (0.0-0.5) mg/dL AST 15 (5-31) U/L ALT 11 (0-31) U/L Alkaline Phosphatase 49 (39-117) U/L Troponin I High Sens < 2.7 (<3.5-17.0) ng/L Total Protein 7.1 (6.5-8.0) g/dL Albumin 3.9 (3.5-5.0) g/dL Beta HCG, Quant < 2 mIU/mL Influenza Type A (PCR) NEGATIVE (Negative) Influenza Type B (PCR) NEGATIVE (Negative) RSV RNA Qual (PCR) NEGATIVE (Negative) SARS-CoV-2 RNA (RT-PCR) NEGATIVE (Negative) Radiology Impression Discussion of test interpretation with radiology: I have reviewed the radiologist's reading. External Record Review External record reviewed: Inpatient record, Office record, Outpatient record, Prior outpatient labs, Prior outpatient radiology, Primary care record and Outside ED record Tests considered The following testing was considered but not selected: As above Critical Care Time Critical Care Time Critical Care Time: Yes Total Critical Care Time: 40 Attestation: I have personally provided critical care time exclusive of time spent on separately billable procedures. Time includes review of lab data, radiology results, discussion with consultants, and monitoring for potential decompensation. Intervention performed as documented. Discharge Plan Discharge Clinical Impression: Occlusion of left vertebral artery Patient Disposition: Admitted As Inpatient Print Language: Italian
--- NOTE | 2024-02-20 09:21 | ECG_ITS ---
Test Reason : DIZZINESS Blood Pressure : / mmHG Vent. Rate : 054 BPM Atrial Rate : 054 BPM P-R Int : 192 ms QRS Dur : 082 ms QT Int : 420 ms P-R-T Axes : 036 027 034 degrees QTc Int : 398 ms Sinus bradycardia Low voltage QRS Borderline ECG When compared with ECG of 18-MAY-2023 11:23, T wave inversion no longer evident in Inferior leads Referred By: Aline Mackenzie Electronically Signed By:Jude Karimi
[2024-02-20 09:34] LABS: Influenza A PCR NEGATIVE (Negative); Influenza B PCR NEGATIVE (Negative); Resp Syncy Virus RNA Qual PCR NEGATIVE (Negative); SARS COV2 PCR INHOUSE NEGATIVE (Negative)
[2024-02-20] MEDS: 0.9 % Sodium Chloride 1,000 ML 999 ML IV (09:36)
[2024-02-20 09:41] LABS: MANUAL DIFF FLAG NO
[2024-02-20 09:43] LABS: Basophils Percent Auto 0.5 % (0-2); Eosinophils Percent Auto 0.2 % (0-4); Hematocrit 41.7 % (37.0-47.0); Hemoglobin 14.6 g/dl (12.0-16.0); Imm Gran Abs Auto 0.01 X10*3/uL (0.00-0.03); Imm Gran Pct Auto 0.2 % (0.0-0.4); Lymphocytes Absolute Auto 0.6 X10*3/uL (1.2-4.9); Lymphocytes Percent Auto 14.6 % (20-40); Mean Corpuscular Hemoglobin 31.9 pg (27.0-33.0); Mean Platelet Volume 9.3 fL (9.4-12.3); Monocytes Absolute Auto 0.2 X10*3/uL (0.1-1.2); Monocytes Percent Auto 4.7 % (2-11); Neutrophils Absolute Auto 3.2 x10*3/uL (2.0-8.3); Neutrophils Percent Auto 79.8 % (45-73); Platelet Count 230 X10*3/uL (160-400); Red Blood Count 4.58 X10*6/uL (4.20-5.50); Red Cell Distribution Width 11.9 % (11.0-16.0)
[2024-02-20 09:55] LABS: INTERNATIONAL NORM RATIO 0.9 (0.9-1.1); Prothrombin Time 11.4 SEC (11.1-13.3)
[2024-02-20 10:04] LABS: Alanine Aminotransferase 11 U/L (0-31); Albumin Level 3.9 g/dL (3.5-5.0); Alkaline Phosphatase 49 U/L (39-117); Anion Gap 11 (12-20); Aspartate Amino Transferase 15 U/L (5-31); Bilirubin Direct 0.2 mg/dL (0.0-0.5); Bilirubin Total 0.6 mg/dL (0.0-1.0); Blood Urea Nitrogen 16 mg/dL (9-16); Calcium 8.9 mg/dL (8.4-10.2); Carbon Dioxide 26 mmol/L (22-29); Chloride 108 mmol/L (96-108); Creatinine Clr Calc Pharmacy 97.7; Estimated Glomerular Filt Rate > 60; Glucose Random 127 mg/dL (60-115); HCG Quantitative < 2 mIU/mL; Magnesium 1.9 mg/dL (1.6-2.6); Potassium 4.2 mmol/L (3.3-5.1); Sodium 141 mmol/L (135-145); Total Protein 7.1 g/dL (6.5-8.0); Troponin-I High Sensitivity < 2.7 ng/L (<3.5-17.0)
[2024-02-20] MEDS: Meclizine HCl 25 MG TABLET PO (10:08)
[2024-02-20] MEDS: Acetaminophen 325 MG TABLET 975 MG PO (10:08)
[2024-02-20] MEDS: iohexoL 350 MG/ML 100 ML INFUS..BTL 70 ML IV (10:46)
[2024-02-20] MEDS: Aspirin Enteric Coated 81 MG TABLET.DR PO (12:33)
[2024-02-20] MEDS: Clopidogrel Bisulfate 75 MG TABLET PO (12:33)
--- NOTE | 2024-02-20 12:41 | PHA.MEDREC ---
Addendum entered by Yessy Daniels RPh 02/20/24 14:19: med rec reviewed by [email or web address] Original Note: Pharmacy Consult ? Medication Reconciliation Pharmacy has completed the medication reconciliation. Spoke with patient to confirm medications. She only takes levothyroxine Thursday through Thursday which she last took yesterday. She took her blood pressure medications this morning at 2AM. She uses ibuprofen over the counter when she needs it.
--- NOTE | 2024-02-20 13:25 | P.HPHOSP_ITS ---
History of Present Illness Date of Service: 02/20/24 Attending physician on admission: Osvaldo Parra Chief Complaint: Neck pain, dizziness Pt is a 48-year-old female with a PMH significant for?HTN and hypothyroidism who presents to the ED with?dizziness, ataxia, headache, and neck pain since this morning. Patient reports she has been experiencing headache and neck pain for the past month, worse the past 2-3 days. Patient was previously told that she had arthritis in the neck and attributed symptoms to that. Patient woke this morning with dizziness, difficulty walking, and ?dripping sweat?. Found it difficult to focus on reading, saying that ?it was as if what I was seen was not connecting to my brain?. No blurriness or acute vision changes. Denies any numbness, tingling, or weakness in extremities. Patient reports she felt like she was having difficulty speaking, but noticed no difference in how she talked. Denies chest pain/pressure, palpitations. No shortness a breath or difficulty speaking. No fever, chills, nausea, vomiting, abdominal pain. Of note, patient states that on night experienced an episode where she bend her neck while eating and felt an immediate sharp, shooting, electrical pain radiating upper neck and into her head. The patient felt like she was going to pass out and then lay on the couch. Also experienced numbness and tingling on the left side of her face. Episode lasted approximately 10 minutes before resolving. Patient currently continues to experience headache and neck pain and occasional lightheadedness/dizziness with movement. Reports no known family history of bleeding or hypercoagulable disorders, but has had one known miscarriage and had two relatives that of blood clots, though is rather vague on details. Denies history of smoking or illicit drug use. Mild occasional social alcohol consumption. In the ED pt's vitals stable and WNL. Labs were grossly unremarkable. No leukocytosis. Stable H&H. No significant electrolyte abnormalities. Renal and hepatic function WNL. Troponin negative. 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 CT of head demonstrated no acute intracranial hemorrhage or infarct. EKG demonstrated sinus bradycardia of 50 without evidence of significant ST elevations or depressions. Pt was treated with IVF acetaminophen, meclizine, aspirin, and clopidogrel. Pt will be admitted to the hospital for treatment and further evaluation of acute CVA secondary to complete left vertebral artery occlusion. Review of Systems 2 Review of Systems: Headache and neck pain x1 month, worse past 2-3 days Dizziness, ataxia Difficulty focusing and concentrating Diaphoresis No observe dysarthria Denies numbness, tingling, or weakness in extremities No acute vision changes No chest pain/pressure, palpitations Denies shortness breath or difficulty breathing. [facility] Medical History (Updated 02/20/24 @ 14:43 by JOANN Norman) Hypothyroidism Essential hypertension Social History Advance Directives: No Advance Directives Information Provided: Yes Do you have a plan to hurt others: No Plan Meds Allergies Allergy/AdvReac Type Severity Reaction Status Date / Time No Known Allergies Allergy Verified 02/20/24 08:46 Home Medications ?Medication ?Instructions ?Recorded ?Confirmed ?Last Taken ?Type amlodipine 5 mg-benazepril 20 mg 1 cap PO DAILY 02/20/24 02/20/24 02/20/24 02:00 History capsule atenolol 50 mg tablet 50 mg PO DAILY 02/20/24 02/20/24 02/20/24 02:00 History levothyroxine 175 mcg tablet 175 mcg PO MOTUWETHFR@0600 02/20/24 02/20/24 02/19/24 History Physical Exam 2 Vital Signs and Narrative: Vital Signs: Last Vital Signs Temp 97.7 F 02/20/24 08:42 Pulse 54 02/20/24 11:48 Resp 18 02/20/24 08:42 BP 139/82 02/20/24 11:48 Pulse Ox 99 02/20/24 08:42 O2 Del Method Room Air 02/20/24 08:42 BMI result Body Mass Index 30.1 Constitutional: Alert, in no acute distress. Mental Status: Oriented to person, place and time. Eyes: Pupils are equal, round, and reactive to light. Ear, Nose, and Throat: Oropharynx clear, mucous membranes moist. Ears and nose without deformities. Trachea midline. Respiratory: Clear to auscultation bilaterally. No wheezing, rales, or rhonchi. Cardiovascular: S1, S2 regular. No murmurs, rubs, or gallops. Gastrointestinal: Abdomen soft, non-tender, non-distended. Normal bowel sounds. Neurologic: Cranial nerves II-XII are grossly intact bilaterally. No focal neurological deficits. Moves all extremities spontaneously. Sensation to light touch intact of face, upper and lower extremities bilaterally. Strength intact and symmetrical of upper and lower extremities bilaterally. No facial droop or dysarthria noted Skin: Warm, dry. Musculoskeletal: No cyanosis or clubbing. Extremities: No edema. Psychiatric: Normal mood and affect. Results Labs 02/20/24 09:35 02/20/24 09:35 Labs: Laboratory Results - last 24 hr 02/20/24 02/20/24 08:52 09:35 MCV 91.0 MCH 31.9 MCHC 35.0 RDW 11.9 Plt Count 230 MPV 9.3 L Immature Gran % (Auto) 0.2 Neut % (Auto) 79.8 H Lymph % (Auto) 14.6 L [place] % (Auto) 4.7 Eos % (Auto) 0.2 Baso % (Auto) 0.5 Lymph # (Auto) 0.6 L [place] # (Auto) 0.2 Eos # (Auto) 0.0 Baso # (Auto) 0.0 Abs Immat Gran (auto) 0.01 Absolute Neuts (auto) 3.2 Absolute Nucleated RBC 0.000 Nucleated RBC % (auto) 0.0 PT 11.4 INR 0.9 Anion Gap 11 L Estim Creat Clear Calc 97.7 Estimated GFR > 60 Random Glucose 127 H Calcium 8.9 Magnesium 1.9 Total Bilirubin 0.6 Direct Bilirubin 0.2 AST 15 ALT 11 Alkaline Phosphatase 49 Troponin I High Sens < 2.7 Total Protein 7.1 Albumin 3.9 Beta HCG, Quant < 2 Influenza Type A (PCR) NEGATIVE Influenza Type B (PCR) NEGATIVE RSV RNA Qual (PCR) NEGATIVE SARS-CoV-2 RNA (RT-PCR) NEGATIVE Imaging Radiologist's Impressions: Impressions Head/Neck CTA 02/20/24 10:46 IMPRESSION: -CT head demonstrates no acute intracranial hemorrhage or infarct. 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 No other site of large vessel occlusion or hemodynamically significant stenosis. Assessment and Plan (1) Occlusion of left vertebral artery: Status: Acute Plan Pt is a 48-year-old female with a PMH significant for?HTN and hypothyroidism who presents to the ED with?dizziness, ataxia, headache, and neck pain since this morning. Pt will be admitted to the hospital for treatment and further evaluation of acute CVA secondary to complete left vertebral artery occlusion. Headache, neck pain, dizziness, ataxia Concerning for CVA vs TIA CT of head negative for acute cerebral hemorrhage or territorial infarct CTA of head/neck found complete occlusion of left vertebral artery Will start on aspirin, Plavix, and atorvastatin MRI of head/brain Hold on echocardiogram pending Neurology input Hypercoagulability workup Lipid profile PT/OT consult Neurology consult Monitor on telemetry HTN Hold amlodipine benazepril and atenolol for today for permissive hypertension Resume as indicated Hypothyroidism Continue levothyroxine Full Code Attending:?Dr. Parra DVT Prophylaxis: Lovenox Pt will require a hospitalization of at least two nights for treatment of?neck pain, dizziness, and ataxia in the setting of complete occlusion of left vertebral artery, concerning for acute CVA. Patient will require additional imaging with MRI, close monitoring of cardiac function, and specialist consultation with Neurology. Quality Stroke Does the patient have a stroke diagnosis?: Yes Reason for No Anti-thrombotic by Day Two: Contraindicated (Pt outside of tNK therapeutic window) VTE Prior VTE?: No VTE Risk Level:: Medical - moderate - high VTE Device Contraindication: Treatment Not Indicated VTE Drug Contraindication: N/A - Med Ordered
[2024-02-20 14:50] LABS: Cholesterol 150 mg/dL (<200); HDL Cholesterol 64 mg/dL (>40); LDL Cholesterol Calculated 78 mg/dL (<100); Triglycerides 41 mg/dL (<150)
[2024-02-20] MEDS: Enoxaparin Sodium 40 MG/0.4 ML SYRINGE SUBCUT (16:39)
[2024-02-20] MEDS: Ibuprofen 600 MG TABLET PO (16:39)
--- NOTE | 2024-02-20 19:21 | PC.NURSE ---
Pt assumed pt care @ 1900. Pt resting in bed comfortably, no signs of distress. Plan of care ongoing.
[2024-02-20 19:40] LABS: TSH reflex Free T4 0.98 uIU/mL (0.32-4.0)
[2024-02-20] MEDS: Atorvastatin Calcium 40 MG TABLET PO (22:00)
[2024-02-20 23:42] LABS: Appearance Urine Clear; Color Urine Yellow; Glucose Urine UA Negative (Negative); Leukocyte Esterase Urine Negative (Negative); Nitrite Urine Negative (Negative); PH 6.5 (5.0-9.0); Specific Gravity - Urine 1.025 (1.005-1.025); UMIC TRIGGER UACC YES; Urine Blood Moderate (2+) (Negative); Urine Ketones Negative (Negative); Urine Protein Negative (Neg-Trace)
[2024-02-20 23:50] LABS: Bacteria Urine 1+ (None Seen); Hyaline Casts Urine 0-2 /LPF (0-2); WBC Urine 0-5 /HPF (0-5)
--- NOTE | 2024-02-21 03:03 | PC.NURSE ---
Pt reporting tingling on the right side of her face. Dr. Mcdonnell notified and aware. Plan of care ongoing.
[2024-02-21 06:45] VITALS: BP 111/74; PULSE 71; RESP 20; TEMP 37; O2SAT 97
[2024-02-21 08:08] VITALS: BP 116/65; PULSE 72; RESP 13; TEMP 37; O2SAT 100
[2024-02-21] MEDS: Clopidogrel Bisulfate 75 MG TABLET PO (08:54)
[2024-02-21] MEDS: 0.9 % Sodium Chloride Flush 3 ML SYRINGE IVFLUSH (08:54)
[2024-02-21] MEDS: Aspirin Enteric Coated 81 MG TABLET.DR PO (08:54)
[2024-02-21 09:30] VITALS: BP 136/81; PULSE 75; RESP 16; TEMP 36.4; O2SAT 98
--- NOTE | 2024-02-21 09:53 | P.CNNE_ITS ---
History of Present Illness Data of Consult Service Date: 02/21/24 Primary Care Provider: Chay Betts III, MD [facility] Reason for consult: Vertebral artery disease 48 years old woman who said that she did not have underlying history of headaches started having neck pain and headache few weeks ago and then the other day she was eating something when she put for work close to her mouth and felt more discomfort in her neck associated with dizziness and sweating. She said that she was leaning to 1 side feeling dizzy but not having double vision or any difficulty speaking. She came to emergency room and had evaluation that revealed possible left vertebral occlusion/dissection. She denied any recent accident, neck manipulation, or any heavy physical activity. Review of Systems 2 Review of Systems: No recent cold or flu-like illness PMFSH Past Medical History Medical History (Updated 02/20/24 @ 14:43 by JOANN Norman) Hypothyroidism Essential hypertension Social History Social History Household Members: Spouse, Family and Children Housing: House Patient Tobacco Use Status: Never used Tobacco Meds Allergies Allergy/AdvReac Type Severity Reaction Status Date / Time No Known Allergies Allergy Verified 02/20/24 08:46 Active Medications: Current Medications Acetaminophen (Acetaminophen 325 Mg Tablet) 650 mg PO Q6H PRN PRN Reason: Pain, Mild (Pain Scale 1-3), fever or headache Aspirin (Aspirin Enteric Coated 81 Mg Tablet.) 81 mg PO DAILY [facility] Last Admin: 02/21/24 08:54 Dose: 81 mg Atorvastatin Calcium (Atorvastatin Calcium 40 Mg Tablet) 40 mg PO BEDTIME [facility] Last Admin: 02/20/24 22:00 Dose: 40 mg Benzonatate (Benzonatate 100 Mg Capsule) 100 mg PO TID PRN PRN Reason: Cough Calcium Carbonate (Calcium Carbonate 750 Mg Tab.Chew) 750 mg PO Q4H PRN PRN Reason: Heartburn Clopidogrel Bisulfate (Clopidogrel Bisulfate 75 Mg Tablet) 75 mg PO DAILY [facility] Last Admin: 02/21/24 08:54 Dose: 75 mg Enoxaparin Sodium (Enoxaparin Sodium 40 Mg/0.4 Ml Syringe) 40 mg SUBCUT Q24H [facility] Last Admin: 02/20/24 16:39 Dose: 40 mg Ibuprofen (Ibuprofen 600 Mg Tablet) 600 mg PO ONCE ONE Stop: 02/21/24 09:49 Levothyroxine Sodium (Levothyroxine Sodium 175 Mcg Tablet) 175 mcg PO MOTUWETHFR@0600 [facility] Magnesium Hydroxide (Milk Of Magnesia 30 Ml Oral.Susp) 30 ml PO DAILY PRN PRN Reason: Constipation Melatonin (Melatonin 3 Mg Tablet) 6 mg PO BEDTIME PRN PRN Reason: Insomnia Ondansetron HCl (Ondansetron Hcl 4 Mg/2 Ml Vial) 4 mg IVPUSH Q8H PRN PRN Reason: Nausea and Vomiting Sodium Chloride (0.9 % Sodium Chloride Flush 3 Ml Syringe) [facility] Last Admin: 02/21/24 08:54 Dose: 3 ml Home Medications ?Medication ?Instructions ?Recorded ?Confirmed ?Last Taken ?Type amlodipine 5 mg-benazepril 20 mg 1 cap PO DAILY 02/20/24 02/20/24 02/20/24 02:00 History capsule atenolol 50 mg tablet 50 mg PO DAILY 02/20/24 02/20/24 02/20/24 02:00 History levothyroxine 175 mcg tablet 175 mcg PO MOTUWETHFR@0600 02/20/24 02/20/24 02/19/24 History Physical Exam 2 Vital Signs: Vital Signs: Last Vital Signs Temp 98.6 F 02/21/24 08:08 Pulse 72 02/21/24 08:08 Resp 13 02/21/24 08:08 BP 116/65 02/21/24 08:08 Pulse Ox 100 02/21/24 08:08 O2 Del Method Room Air 02/21/24 08:08 BMI result Body Mass Index 30.1 Neuro: Other: She is alert and awake with normal spontaneity of speech fluency comprehension and affect. Face is symmetrical. Visual leigh are full. Pupils are equal are reactive to light. Extraocular muscles are intact. There is no pronator drift. [id number]-[id number] testing is normal. Deep tendon reflexes are trace to 1+ with flexor plantars. Speech is normal. Results Labs 02/20/24 09:35 02/20/24 09:35 Labs: BMP 02/20/24 09:35 Sodium 141 Potassium 4.2 Chloride 108 Carbon Dioxide 26 BUN 16 Creatinine 0.70 Calcium 8.9 Liver Function 02/20/24 Range/Units 09:35 Total Bilirubin 0.6 (0.0-1.0) mg/dL Direct Bilirubin 0.2 (0.0-0.5) mg/dL AST 15 (5-31) U/L ALT 11 (0-31) U/L Alkaline Phosphatase 49 (39-117) U/L Albumin 3.9 (3.5-5.0) g/dL Urine 02/20/24 Range/Units 23:36 Urine Color Yellow Urine Appearance Clear Urine pH 6.5 (5.0-9.0) Ur Specific [place] 1.025 (1.005-1.025) Urine Protein Negative (Neg-Trace) mg/dL Urine Glucose (UA) Negative (Negative) mg/dL CTA head and neck demonstrates complete asymmetrically decreased contrast opacification within the entire left vertebral artery segment with tapering near complete loss of contrast opacification within the mid to distal left V2 resulting in complete occlusion of the left intracranial vertebral artery with reconstitution in the very distal left V4. No other site of large vessel occlusion or hemodynamically significant stenosis. MRI of brain did not reveal any acute abnormality. Minimal chronic microvascular ischemic changes were noted. Assessment and Plan (1) Occlusion of left vertebral artery: Status: Acute 48 years old woman with hypertension and symptoms suggestive of posterior circulation disease and imaging revealing occlusion of left vertebral artery that might be due to recent dissection. My recommendation is to continue dual anti-platelet therapy for 3 months, and blood pressure control. Otherwise she can be discharged with outpatient follow-up. Procedures Date of Service Date of Service: 02/21/24
[2024-02-21] MEDS: Ibuprofen 600 MG TABLET PO (09:58)
--- NOTE | 2024-02-21 11:07 | PM.DS ---
DS: Providers Provider Date of Service: 02/21/24 Date of admission: 02/20/24 14:19 Date of discharge: 02/21/24 Primary care physician: Chay Betts III, MD Consults: 02/20/24 14:23 Consult to Neurology Routine Consulting Provider: [facility] Reason for consultation: Left vertebral artery occlusion, ?CVA DS: Diagnosis Discharge Diagnosis (1) Occlusion of left vertebral artery: Status: Acute DS: Summary Hospital Course Hospital Course: 48-year-old female with a PMH significant for?HTN and hypothyroidism who presents to the ED with?dizziness, ataxia, headache, and neck pain since this morning. Patient reports she has been experiencing headache and neck pain for the past month, worse the past 2-3 days. Patient was previously told that she had arthritis in the neck and attributed symptoms to that. Patient woke this morning with dizziness, difficulty walking, and ?dripping sweat?. Found it difficult to focus on reading, saying that ?it was as if what I was seen was not connecting to my brain?. No blurriness or acute vision changes. Denies any numbness, tingling, or weakness in extremities. Patient reports she felt like she was having difficulty speaking, but noticed no difference in how she talked. Denies chest pain/pressure, palpitations. No shortness a breath or difficulty speaking. No fever, chills, nausea, vomiting, abdominal pain. Of note, patient states that on night experienced an episode where she bend her neck while eating and felt an immediate sharp, shooting, electrical pain radiating upper neck and into her head. The patient felt like she was going to pass out and then lay on the couch. Also experienced numbness and tingling on the left side of her face. Episode lasted approximately 10 minutes before resolving. Patient currently continues to experience headache and neck pain and occasional lightheadedness/dizziness with movement. Reports no known family history of bleeding or hypercoagulable disorders, but has had one known miscarriage and had two relatives that of blood clots, though is rather vague on details. Denies history of smoking or illicit drug use. Mild occasional social alcohol consumption. In the ED pt's vitals stable and WNL. Labs were grossly unremarkable. No leukocytosis. Stable H&H. No significant electrolyte abnormalities. Renal and hepatic function WNL. Troponin negative. 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 CT of head demonstrated no acute intracranial hemorrhage or infarct. EKG demonstrated sinus bradycardia of 50 without evidence of significant ST elevations or depressions. Pt was treated with IVF acetaminophen, meclizine, aspirin, and clopidogrel. Pt will be admitted to the hospital for treatment and further evaluation of acute CVA secondary to complete left vertebral artery occlusion. Hospital Course That is a telemetry overnight. Monitor failed to demonstrate acute dysrhythmias. When further queried, patient gives a family history of hypercoagulability and has experienced a miscarriage herself. Given such a hypercoagulability panel was ordered. She was seen in consultation by Neurology who reviewed MRI (no acute issues). Recommendation was home with Plavix 75 mg daily for 3 months along with aspirin and follow up as an outpatient. She can follow up with her PCP for review of hypercoagulation panel Time Attestation Discharge Coordination Time (in mins): 35 Quality: Safe Use of Opioids Does Pt have an Active Cancer Diagnosis on the Problem List?: No Quality: Stroke Does the patient have a stroke diagnosis?: No Physical Exam Vital Signs: Vital Signs: Last Vital Signs Temp 97.5 F 02/21/24 09:30 Pulse 75 02/21/24 09:30 Resp 16 02/21/24 09:30 BP 136/81 02/21/24 09:30 Pulse Ox 98 02/21/24 09:30 O2 Del Method Room Air 02/21/24 09:30 BMI result Body Mass Index 30.1 Const: Other: Awake alert no acute issues Resp: Other: Clear to auscultation bilaterally no rales rhonchi or wheezes Cardio: Other: No S4; positive S1-S2; no S3 murmurs rubs or gallops GI: Other: Soft nontender nondistended normoactive bowel sounds Neuro: Other: Cranial nerves 2-12 grossly intact as tested. Motor is 5/5 all extremities. Sensation is intact. Cognition appropriate. Gait steady Extrem: Other: No edema bilaterally DS: Data Data Completed and Pending Labs on day of discharge: Laboratory Results - last 24 hr 02/20/24 02/20/24 09:35 23:36 Triglycerides 41 Cholesterol 150 LDL Cholesterol, Calc 78 HDL Cholesterol 64 TSH 0.98 Urine Color Yellow Urine Appearance Clear Urine pH 6.5 Ur Specific [place] 1.025 Urine Protein Negative Urine Glucose (UA) Negative Urine Ketones Negative Urine Blood Moderate (2+) H Urine Nitrite Negative Ur Leukocyte Esterase Negative Urine RBC 11-20 H Urine WBC 0-5 Ur Squamous Epith Cells 11-20 Urine Bacteria 1+ Hyaline Casts 0-2 Discharge Plan Discharge Anticipated Discharge Date/Time: 02/21/24 11:04 Patient Disposition: Home, Self-Care Discharge Diagnosis: Occlusion of left intracranial vertebral artery Referrals: Chay Betts III, MD [Primary Care Provider] - 1 Week Discharge Medications: New atorvastatin 40 mg Tablet 40 mg PO BEDTIME Qty: 30 3RF clopidogrel 75 mg Tablet 75 mg PO DAILY Qty: 30 3RF aspirin 81 mg Tablet,Delayed Release (Dr/Ec) 81 mg PO DAILY Qty: 30 3RF Continued levothyroxine 175 mcg tablet 175 mcg PO MOTUWETHFR@0600 amlodipine-benazepril 5-20 mg capsule 1 cap PO DAILY atenolol 50 mg tablet 50 mg PO DAILY Discharge Orders: Discharge Order (Routine); Ordered 02/21/24 Ordered By: Osvaldo Parra Diet: Advance to usual diet Activity on Discharge: As tolerated Stand Alone Forms: Patient Portal Discharge page Print Language: Korean Care Plan Goals: Resume all medicines as taken prior to hospitalization Health Concerns: Plavix 75 mg daily has been added to your regimen along with Lipitor 40 mg daily and aspirin 81 mg daily. Plan of Treatment: Follow-up with Neurology and PCP next available Assessment: See discharge summary
--- NOTE | 2024-02-21 11:59 | MHC.CM.PN ---
CM MET WITH PT AND AT BEDSIDE PT IS INDEPENDENT WITH ALL CARE AND MOBILITY SHE HAS NO DME AND NO SERVICES PT AND EACH COMPLETED A HCP TODAY, PTS NOW ON FILE PCP: CATALINA SHABAZZ PT CLEARED TO DC HOME TODAY WITH NO SERVICES TO TRANSPORT
[2024-02-22 17:33] LABS: Homocysteine 7.6 umol/L (<10.4)
[2024-02-22 21:52] LABS: Cardiolipin IgG Ab <2.0 GPL-U/mL; Cardiolipin IgM Ab <2.0 MPL-U/mL
[2024-02-24 21:44] LABS: Anti-Thrombin III Antigen 88 % normal (80-120)
[2024-02-25 23:58] LABS: Protein C Activity 108 % normal (70-180); Protein S Activity rflx Tot&Fr 52 % normal (60-140)
[2024-02-27 04:12] LABS: Factor V Leiden NEGATIVE
[2024-02-27 20:29] LABS: Prothrombin 20210A NEGATIVE
[2024-02-28 15:13] LABS: Protein S Free Antigen 47 % normal (50-147); Protein S Total (Antigenic) 74 % normal (70-140)
[2024-02-28 23:18] LABS: PTT (LAC) Screen 36 sec (<=40)
== END 2024-02-21 12:00 | disposition home or self-care (01) | DRG 46 ==
LOC: HO.ED 12:06 → HO.EDOVER 14:45 → HO.IMC 02-21 07:54
PROVIDERS: Physician Assistant; Admitting Provider Student in an Organized Health Care Education/Training Program; Emergency Provider Emergency Medicine; PCP Internal Medicine; Visit Provider Hospitalist
DX: I65.02 Occlusion and stenosis of left vertebral artery (principal); E03.9 Hypothyroidism, unspecified; I10 Essential (primary) hypertension; Z20.822 Contact with and (suspected) exposure to COVID-19; Z83.2 Family history of diseases of the blood and blood-forming organs and certain disorders involving the immune mechanism; Z79.890 Hormone replacement therapy; Z79.899 Other long term (current) drug therapy
CPT/HCPCS: 0241U; 36415; 70496; 70498; 70551; 80048; 80061; 80076; 81001; 81240; 81241; 83090; 83735; 84443; 84484; 84702; 85025; 85301; 85302; 85303; 85305; 85306; 85597; 85598; 85610; 85613; 85730; 86147; 93005; 99285; J1650; Q9967

== ENCOUNTER → 2024-02-20 09:21 | Outpatient (BNV) | payer OTHER, SELFPAY | PROVIDERS: Admitting Provider Student in an Organized Health Care Education/Training Program; Emergency Provider Emergency Medicine; PCP Internal Medicine; Visit Provider Internal Medicine Cardiovascular Disease | DX: R00.1 Bradycardia, unspecified (principal) | CPT/HCPCS: 93010 ==

== ENCOUNTER → 2024-02-20 14:19 | Outpatient (BNV) | payer OTHER, SELFPAY | PROVIDERS: Admitting Provider Student in an Organized Health Care Education/Training Program; Emergency Provider Emergency Medicine; PCP Internal Medicine; Visit Provider Psychiatry & Neurology Neurology | DX: I65.02 Occlusion and stenosis of left vertebral artery (principal) | CPT/HCPCS: 99222 ==

== ENCOUNTER → 2024-02-20 14:19 | Outpatient (BNV) | payer OTHER, SELFPAY | PROVIDERS: Admitting Provider Student in an Organized Health Care Education/Training Program; Emergency Provider Emergency Medicine; PCP Internal Medicine; Visit Provider Student in an Organized Health Care Education/Training Program | DX: I65.02 Occlusion and stenosis of left vertebral artery (principal) | CPT/HCPCS: 99223; 99239 ==

== ENCOUNTER 2024-02-22 14:48 | Observation (INO) | payer OTHER, SELFPAY ==
--- NOTE | ~2024-02-22 | CT_ITS ---
EXAMINATION: CT CERVICAL SPINE WITHOUT CONTRAST CLINICAL INFORMATION: Neck pain COMPARISON: 05/18/2023 CT C-spine TECHNIQUE: Spiral CT imaging of the cervical spine was performed in the axial plane, from the skull base to the thoracic inlet. Sagittal, coronal, and both thin and thick section bony and soft tissue kernel axial reformatted images constructed from the axial data set. This CT examination was performed using dose optimization techniques as appropriate, variously including the following: *Automated exposure control *Adjustment of mA and/or kV according to patient size (this includes techniques or standardized protocols for targeted exams where dose is matched to indication/reason for exam; i.e. extremities or head) *Use of iterative reconstruction technique DLP: 257 mGy-cm FINDINGS: Alignment: There is a reversal of the normal lordosis centered at C4. There is no significant scoliosis. There is a 3 mm degenerative type anterolisthesis of C3 on C4. Alignment is otherwise anatomic. Craniocervical Junction/C1-C2 Articulations: Lateral masses of C1 articulate normally with the occipital condyles. No significant degenerative arthritis in the atlantoaxial joint. Imaged posterior fossa Structures: Normal in appearance. Vertebral Bodies/Bones: There are no fractures or compression deformities. There are no suspicious bone lesions. There is ossification of the posterior longitudinal ligament present spanning C4-C6, with effects as described below. Elongated right styloid process, correlate with painful swallowing, if present. Skull base appears intact. Mastoids are normally aerated. Mild degenerative arthritis in the TM joints noted bilaterally. Discs: Mild to moderate disc space narrowing noted C4-C6. Remainder of the intervertebral discs appear normal in height. Disc bulges at C4-C5 and C5-C6 as detailed below. Spinal Cord: No definite evidence of high-grade central canal stenosis or cord impingement. Cervical Soft Tissues: There is no prevertebral or retropharyngeal soft tissue abnormality. No adenopathy or mass. The thyroid is diminutive poorly seen. There is fatty change of both parotid glands. Paraspinous musculature appears normal. Axial Disc Space Images: C2-C3: No significant disc pathology. Mild left facet hypertrophic arthropathy. No significant central canal or neural foraminal stenosis. No interval change. C3-C4: Mild disc uncovering secondary to anterolisthesis, mild bilateral left greater than right uncinate spurring, a diffuse shallow disc bulge present, severe hypertrophic degenerative left facet changes present, with findings contributing to mild central canal stenosis, severe left neural foraminal stenosis, and mild right neural foraminal narrowing. No interval change. C4-C5: Small central disc protrusion present which indents upon the ventral thecal sac and results in mild to moderate central canal stenosis. Mild ossification of the anterior longitudinal ligament as well. Severe right and moderate left uncinate spurring and hypertrophy, mild bilateral facet spurring, with findings resulting in mild central canal stenosis, severe right and moderate left neural foraminal stenosis. No interval change. C5-C6: Diffuse shallow disc bulge present with associated ossification of the posterior longitudinal ligament, and depending upon the ventral thecal sac but not definitively resulting in significant central canal narrowing. Mild left greater than right uncinate and facet spurring, with findings resulting in mild central canal narrowing, moderate left and mild right neural foraminal narrowing. No interval change. C6-C7: Minimal shallow disc bulging eccentric to the right, mild bilateral uncinate spurring and mild left greater than right facet spurring, however no significant central canal stenosis. There is mild left neural foraminal narrowing. No interval change. C7-T1: There is no central canal or neural foraminal narrowing. CT/CT cervical spine wo IV con IMPRESSION: 1. Examination is stable, reversal of the normal lordosis at C4, with 3 mm anterolisthesis C3 on C4 due to left facet degeneration and disc degeneration. 2. Mild ossification of the posterior longitudinal ligament spanning C4-C6, not resulting in any significant central canal compromise. 3. At C4-C5, a central disc protrusion coupled with OPLL, severe hypertrophic left facet degenerative changes results in mild to moderate central canal stenosis and severe left neural foraminal impingement. 4. Severe right neural foraminal impingement at C4-C5 due to facet and uncinate spurring. 5. See above for details, and additional ancillary findings.
--- NOTE | ~2024-02-22 | CT_ITS ---
EXAMINATION: CT ANGIOGRAM HEAD CT ANGIOGRAM NECK CT CERVICAL SPINE CLINICAL INFORMATION: Vertigo COMPARISON: MRI brain 02/20/2024 and CTA 02/20/2024 TECHNIQUE: Test bolus sequences followed by intravenous administration 70 mL of Omnipaque 350. Helical imaging was performed in the axial plane from the aortic arch to the skull vertex. Delayed postcontrast imaging of the head was also performed. The data was processed at the nuclear medicine technologist's workstation for generation of MIP sequences. Angled MIPs and volume rendered reformatted images were also generated at an offline 3D workstation. Stenoses are assessed in accordance with Vazquez et al. Quantification of Carotid Stenosis on CT Angiography. AJR 2006. 27(1):13-19. CT acquisitions of the cervical spine are also obtained. This CT examination was performed using dose optimization techniques as appropriate, variously including the following: *Automated exposure control *Adjustment of mA and/or kV according to patient size (this includes techniques or standardized protocols for targeted exams where dose is matched to indication/reason for exam; i.e. extremities or head) *Use of iterative reconstruction technique DLP: 2313.85 mGy-cm FINDINGS: CT HEAD: The ventricles and sulci are normal in size and configuration without significant volume loss or hydrocephalus. There is no abnormal attenuation within the brain parenchyma. No territorial loss of badillo-white differentiation. No acute intracranial hemorrhage or extra-axial fluid collection. No significant mass effect or herniation pattern No pathologic intra-axial enhancement within limitations of CT or regional oligemia. The orbits are grossly normal. Paranasal sinuses and mastoid air cells are well aerated. Osseous structures are intact. CTA HEAD: Interval recanalization of previously occluded intradural left vertebral artery, noting persistent mild to moderate luminal narrowing at its midportion presumably from surrounding intramural hematoma, noting artifact limits assessment. Redemonstrated fenestrated proximal basilar artery. The remainder of the intracranial arterial vasculature is widely patent. No aneurysms and no high flow vascular malformations. Timing of the contrast bolus allows assessment of the major dural venous sinuses, which all opacify normally CTA NECK: There is new eccentric mural thickening with resultant minimal luminal narrowing of the right V2 vertebral artery at the level of C2-C3 (images 280 1998, series 15), suspicious for arterial dissection and intramural hematoma that could be better diagnostically assessed with fat-saturated T1-weighted imaging of the neck. The left cervical vertebral artery demonstrates more robust contrast filling along its course. Interval recanalization of previously seen occluded distal left V2 and V3 segments, with residual mild to moderate luminal narrowing at and beyond the left C1 transverse foramen to the dural insertion related to intramural hematoma. Two vessel branching pattern of the arch with left common carotid artery arising from the brachiocephalic trunk. Origins of the great vessels are widely patent. The common carotid arteries are widely patent. The carotid bifurcations and bilateral internal carotid arteries are normal. The right vertebral artery is dominant. The vertebral artery ostia are widely patent. CT NECK: Enlargement of the pulmonary artery can be correlated clinically for pulmonary hypertension. Diminutive thyroid gland which is low density likely from reduced iodine content in the setting of chronic thyroid disease and can be correlated with thyroid function tests. CT Cervical Spine: Reversal of the normal cervical lordosis. No acute fracture or traumatic subluxation. Mild cervical spondylosis with multilevel disc osteophyte complexes and uncovertebral spurring. Redemonstrated severe left C3-C4 facet arthropathy with subchondral cystic/erosive change, cortical irregularity and slight diastasis which may reflect underlying joint effusion. Findings are presumably degenerative/inflammatory in the absence of clinical concern for infection. There is associated moderate left C3-C4 neural foraminal narrowing at this level. Focal ossification of the posterior longitudinal ligament at C6. CT/CT angio head neck IMPRESSION: 1. No acute intracranial findings. 2. There is new eccentric mural thickening with resultant minimal luminal narrowing of the right V2 vertebral artery at the level of C2-C3 (images [id number] 1999, series 15), suspicious for arterial dissection and intramural hematoma that could be better diagnostically assessed with fat-saturated T1-weighted imaging of the neck. 3. Interval recanalization of previously seen occluded distal left V2 throughout before segments, with residual mild to moderate luminal narrowing at and beyond the left C1 transverse foramen to the dural insertion and of the mid intradural segment related to intramural hematoma. 4. Enlargement of the pulmonary artery can be correlated clinically for pulmonary hypertension. 5. Diminutive thyroid gland which is low density likely from reduced iodine content in the setting of chronic thyroid disease and can be correlated with thyroid function tests. 6. No acute fracture or traumatic subluxation in the cervical spine. 7. Asymmetric severe left C3-C4 facet arthropathy with subchondral cystic/erosive change, cortical irregularity and slight diastasis which may reflect underlying joint effusion. Findings are presumably degenerative/inflammatory in the absence of clinical concern for infection.
--- NOTE | ~2024-02-22 | MR_ITS ---
EXAMINATION: MR BRAIN WITHOUT CONTRAST CLINICAL INFORMATION: CVA COMPARISON: CTA 02/24/2024 and MRI 02/20/2024 TECHNIQUE: MRI of the brain was obtained using routine sequences without contrast. FINDINGS: Again noted abnormal flow void of the left vertebral artery with T1 hyperintense mural thickening along the imaged distal left cervical and intradural segments with corresponding diffusion signal abnormality related to acute intramural hematoma in the setting of arterial dissection. No acute infarct. No acute intracranial hemorrhage or extra-axial fluid collection. The ventricles and sulci are normal in size and configuration without significant volume loss or hydrocephalus. Redemonstrated few entered nonspecific T2 FLAIR hyperintense foci in the subcortical and periventricular white matter. No mass lesion, mass effect, or herniation pattern. Normal dural venous sinus flow voids. Normal appearance of the midline structures. The orbits are grossly unremarkable. The paranasal sinuses and mastoids are well aerated. Normal marrow signal. MR/MR head/brain wo con IMPRESSION: No acute infarct. Again noted abnormal flow void of the left vertebral artery vertebral artery with T1 hyperintense mural thickening along the imaged distal left cervical and intradural segments with corresponding diffusion signal abnormality related to acute intramural hematoma in the setting of arterial dissection.
--- NOTE | ~2024-02-22 | MR_ITS ---
MRI NECK WITHOUT CONTRAST CLINICAL INFORMATION: CTA head and neck February 24, 2024. COMPARISON: Brain MRI and CTA head and neck February 24, 2024. TECHNIQUE: Multiplanar multisequence MR imaging of the neck is obtained without contrast. 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 There is no intramural hematoma along the periphery of the remaining cervical arterial vasculature. No significant soft tissue findings within the neck. 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
[2024-02-22 15:44] VITALS: BP 135/83; PULSE 71; RESP 16; TEMP 36.5; O2SAT 99; BMI 31.0
--- NOTE | 2024-02-22 15:47 | ECG_ITS ---
Test Reason : SYNCOPE Blood Pressure : / mmHG Vent. Rate : 061 BPM Atrial Rate : 061 BPM P-R Int : 178 ms QRS Dur : 080 ms QT Int : 406 ms P-R-T Axes : -04 025 022 degrees QTc Int : 408 ms Normal sinus rhythm Normal ECG When compared with ECG of 20-FEB-2024 09:31, No significant change was found Referred By: Amadou Dang Electronically Signed By:TIMOTHY GARDUNO MD
--- NOTE | 2024-02-22 15:52 | ED_ITS ---
HPI - General Adult General Chief complaint: Dizziness Stated complaint: dizzy spells Time Seen by Provider: 02/22/24 17:45 Related Data Home Medications ?Medication ?Instructions ?Recorded ?Confirmed amlodipine 5 mg-benazepril 20 mg 1 cap PO DAILY 02/20/24 02/20/24 capsule atenolol 50 mg tablet 50 mg PO DAILY 02/20/24 02/20/24 levothyroxine 175 mcg tablet 175 mcg PO MOTUWETHFR@0600 02/20/24 02/20/24 Previous Rx's ?Medication ?Instructions ?Recorded aspirin 81 mg tablet,delayed 81 mg PO DAILY #30 tabs 02/21/24 release atorvastatin 40 mg tablet 40 mg PO BEDTIME #30 tabs 02/21/24 clopidogrel 75 mg tablet 75 mg PO DAILY #30 tabs 02/21/24 Allergies Allergy/AdvReac Type Severity Reaction Status Date / Time No Known Allergies Allergy Verified 02/22/24 15:47 [facility] Past Medical History Medical History Hypothyroidism Essential hypertension Social History Social History Household Members: Spouse, Family and Children Housing: House Patient Tobacco Use Status: Never used Tobacco Smoked in Last 30 Days: No Use of substances other than those prescribed or required for medical reasons: No Advance Directives: No Advance Directives Information Provided: No Patient : No service: No Physical Exam ED Vital Signs: Vital Signs - 24 hr 02/22/24 15:44 02/22/24 18:10 02/22/24 20:00 Temperature 97.7 F 97.6 F 98.3 F Pulse Rate 71 56 58 Respiratory Rate 16 14 16 Blood Pressure 135/83 127/72 134/84 Pulse Oximetry 99 99 98 Oxygen Delivery Method Room Air Room Air Room Air BMI result Body Mass Index 31.0 Course Course Course Narrative: RME: 48 yold female presents to the ED dizziness. Patient was discharged yesterday for dizziness due to left vertebral artery occlusion. Patient denies any slurred speech, facial droop, paralysis of extremities, nausea or vomiting. Patient states dizziness only. Negative for any neuro deficits. Secondary complaint is left foot swelling without any trauma. She states swelling for 1 year. Likely patient will need repeat CTA were discussed with charge nurse. Medical Decision Making Lab Data 02/22/24 16:12 02/22/24 16:12 Labs: Lab Results 02/22/24 Range/Units 16:12 WBC 5.2 (4.8-10.8) X10*3/uL RBC 4.50 (4.20-5.50) X10*6/uL Hgb 14.4 (12.0-16.0) g/dl Hct 40.6 (37.0-47.0) % MCV 90.2 (80.0-98.0) fL MCH 32.0 (27.0-33.0) pg MCHC 35.5 H (31.0-35.0) g/dl RDW 11.9 (11.0-16.0) % Plt Count 238 (160-400) X10*3/uL MPV 9.2 L (9.4-12.3) fL Immature Gran % (Auto) 0.0 (0.0-0.4) % Neut % (Auto) 69.7 (45-73) % Lymph % (Auto) 23.3 (20-40) % [place] % (Auto) 5.6 (2-11) % Eos % (Auto) 0.8 (0-4) % Baso % (Auto) 0.6 (0-2) % Lymph # (Auto) 1.2 (1.2-4.9) X10*3/uL [facility] # (Auto) 0.3 (0.1-1.2) X10*3/uL Eos # (Auto) 0.0 (0.0-0.4) X10*3/uL Baso # (Auto) 0.0 (0.0-0.2) X10*3/uL Abs Immat Gran (auto) 0.00 (0.00-0.03) X10*3/uL Absolute Neuts (auto) 3.6 (2.0-8.3) x10*3/uL Absolute Nucleated RBC 0.000 (0.0-0.012) X10*3/uL Nucleated RBC % (auto) 0.0 (0.0-0.2) /100WBC PT 12.0 (11.1-13.3) SEC INR 1.0 (0.9-1.1) APTT 34.6 (26.0-36.8) SEC Sodium 137 (135-145) mmol/L Potassium 4.1 (3.3-5.1) mmol/L Chloride 107 (96-108) mmol/L Carbon Dioxide 24 (22-29) mmol/L Anion Gap 10 L (12-20) BUN 13 (9-16) mg/dL Creatinine 0.67 (0.5-1.4) mg/dL Estim Creat Clear Calc 103.5 Estimated GFR > 60 Random Glucose 97 (60-115) mg/dL Calcium 8.8 (8.4-10.2) mg/dL Total Bilirubin 0.7 (0.0-1.0) mg/dL AST 16 (5-31) U/L ALT 12 (0-31) U/L Alkaline Phosphatase 53 (39-117) U/L Troponin I High Sens < 2.7 (<3.5-17.0) ng/L Total Protein 7.2 (6.5-8.0) g/dL Albumin 4.1 (3.5-5.0) g/dL Discharge Plan Discharge Clinical Impression: Occlusion of left vertebral artery Patient Disposition: Admitted As Inpatient Print Language: Serbian
[2024-02-22 16:16] LABS: MANUAL DIFF FLAG NO
[2024-02-22 16:18] LABS: Basophils Percent Auto 0.6 % (0-2); Eosinophils Percent Auto 0.8 % (0-4); Hematocrit 40.6 % (37.0-47.0); Hemoglobin 14.4 g/dl (12.0-16.0); Lymphocytes Absolute Auto 1.2 X10*3/uL (1.2-4.9); Lymphocytes Percent Auto 23.3 % (20-40); Mean Corpuscular HGB Conc 35.5 g/dl (31.0-35.0); Mean Corpuscular Volume 90.2 fL (80.0-98.0); Mean Platelet Volume 9.2 fL (9.4-12.3); Monocytes Absolute Auto 0.3 X10*3/uL (0.1-1.2); Monocytes Percent Auto 5.6 % (2-11); Neutrophils Absolute Auto 3.6 x10*3/uL (2.0-8.3); Neutrophils Percent Auto 69.7 % (45-73); Platelet Count 238 X10*3/uL (160-400); Red Cell Distribution Width 11.9 % (11.0-16.0); White Blood Count 5.2 X10*3/uL (4.8-10.8)
[2024-02-22 16:27] LABS: Partial Thromboplastin Time 34.6 SEC (26.0-36.8)
[2024-02-22 16:43] LABS: Troponin-I High Sensitivity < 2.7 ng/L (<3.5-17.0)
[2024-02-22 16:53] LABS: Alanine Aminotransferase 12 U/L (0-31); Albumin Level 4.1 g/dL (3.5-5.0); Alkaline Phosphatase 53 U/L (39-117); Anion Gap 10 (12-20); Aspartate Amino Transferase 16 U/L (5-31); Bilirubin Total 0.7 mg/dL (0.0-1.0); Blood Urea Nitrogen 13 mg/dL (9-16); Calcium 8.8 mg/dL (8.4-10.2); Carbon Dioxide 24 mmol/L (22-29); Chloride 107 mmol/L (96-108); Creatinine Clr Calc Pharmacy 103.5; Estimated Glomerular Filt Rate > 60; Glucose Random 97 mg/dL (60-115); Potassium 4.1 mmol/L (3.3-5.1); Sodium 137 mmol/L (135-145); Total Protein 7.2 g/dL (6.5-8.0)
[2024-02-22 18:10] VITALS: BP 127/72; PULSE 56; RESP 14; TEMP 36.4; O2SAT 99
--- NOTE | 2024-02-22 18:58 | ED.DIZZY ---
HPI - Dizziness General Chief Complaint: Dizziness Stated Complaint: dizzy spells Time Seen by Provider: 02/22/24 17:45 History of Present Illness HPI Narrative: Patient is a 48-year-old female presented today with having history of occlusion of the left vertebral artery. Patient was admitted to the hospital started on Plavix 2 days ago. Subsequently was discharged home. Patient continued to have episodes of this. Today patient was shopping without any sudden turn then had the dizziness which felt like spinning sensation lasted about 20 minutes. Spontaneous resolution there is no focal weakness there is no chest pain there is no diaphoresis. Patient is now able to ambulate without any difficulties. No fever no chills no cough no congestion or upper respiratory symptoms. Patient is from home. Complaining of left foot pain but it has been ongoing for 1 year. It has not changed. Patient denies any facial numbness. That is new. Denies any other new medications. Does not think she is . She is from home. Related Data Home Medications ?Medication ?Instructions ?Recorded ?Confirmed amlodipine 5 mg-benazepril 20 mg 1 cap PO DAILY 02/20/24 02/20/24 capsule atenolol 50 mg tablet 50 mg PO DAILY 02/20/24 02/20/24 levothyroxine 175 mcg tablet 175 mcg PO MOTUWETHFR@0600 02/20/24 02/20/24 Previous Rx's ?Medication ?Instructions ?Recorded aspirin 81 mg tablet,delayed 81 mg PO DAILY #30 tabs 02/21/24 release atorvastatin 40 mg tablet 40 mg PO BEDTIME #30 tabs 02/21/24 clopidogrel 75 mg tablet 75 mg PO DAILY #30 tabs 02/21/24 Allergies Allergy/AdvReac Type Severity Reaction Status Date / Time No Known Allergies Allergy Verified 02/22/24 15:47 Review of Systems Review of Systems: Positive headache Positive episodes of dizziness spinning sensation Yes all other systems are reviewed and are negative [facility] Past Medical History Attestation statement: The following information was validated with the patient. Medical History Hypothyroidism Essential hypertension Social History Social History Household Members: Spouse, Family and Children Housing: House Patient Tobacco Use Status: Never used Tobacco Smoked in Last 30 Days: No Use of substances other than those prescribed or required for medical reasons: No Advance Directives: No Advance Directives Information Provided: No Patient : No service: No Physical Exam Vital Signs: Vital Signs: Last Vital Signs Temp 97.6 F 02/22/24 18:10 Pulse 56 02/22/24 18:10 Resp 14 02/22/24 18:10 BP 127/72 02/22/24 18:10 Pulse Ox 99 02/22/24 18:10 O2 Del Method Room Air 02/22/24 18:10 BMI result Body Mass Index 31.0 Appearance: Alert. Oriented X3. No acute distress. Eyes: Pupils equal, round and reactive to light. ENT: Pharynx normal. Neck: Normal inspection. Neck supple. No lymph nodes noted. No crepitus CVS: Normal heart rate and rhythm. Pulses normal. Normal S1 and S2 Respiratory: No respiratory distress. Breath sounds normal. No Wheezing. No rales Abdomen: Soft and nontender. No rigidity. No distention. good BS x4 Skin: Skin warm and dry. Normal skin color. Normal skin turgor. Extremities: No lower extremity edema. Neurovascular intact to all extremities. No Lacerations. No Rash Neuro: Oriented X 3. No motor deficit. No sensory deficit. Moving all extermities. No slurred speech Medical Decision Making Medical Decision Making [facility] Narrative: Patient was in last weekend for having episodes of dizziness. The dizziness is a spinning sensation. Patient had a CTA of the head and neck. MRI of the head done. MRI was negative for acute evidence of ischemic event. CTA was positive for having a [place] artery occlusion on the left. Patient was admitted was evaluated by Neurology in patient was subsequently started on Plavix. She just got discharged yesterday when she started having episodes of dizziness today lasting about 20 minutes with some residual symptoms. Patient's electrolytes are unremarkable. Case discussed with Neurology. [place] at this time patient should be admitted for observation overnight. No additional imaging. Currently in stable condition. Differential Diagnosis Differential Diagnoses: The differential diagnosis associated with the presentation includes CVA Admission/Observation Consideration of admission/observation: Escalation of care including admission/observation considered Consult Healthcare Provider Management of the patient was discussed with: Mental Health Assistant (Neurology) Lab Data [facility] Lab Attestation statement: I reviewed the patient's lab results. 02/22/24 16:12 02/22/24 16:12 Labs: Lab Results 02/22/24 Range/Units 16:12 WBC 5.2 (4.8-10.8) X10*3/uL RBC 4.50 (4.20-5.50) X10*6/uL Hgb 14.4 (12.0-16.0) g/dl Hct 40.6 (37.0-47.0) % MCV 90.2 (80.0-98.0) fL MCH 32.0 (27.0-33.0) pg MCHC 35.5 H (31.0-35.0) g/dl RDW 11.9 (11.0-16.0) % Plt Count 238 (160-400) X10*3/uL MPV 9.2 L (9.4-12.3) fL Immature Gran % (Auto) 0.0 (0.0-0.4) % Neut % (Auto) 69.7 (45-73) % Lymph % (Auto) 23.3 (20-40) % [place] % (Auto) 5.6 (2-11) % Eos % (Auto) 0.8 (0-4) % Baso % (Auto) 0.6 (0-2) % Lymph # (Auto) 1.2 (1.2-4.9) X10*3/uL [place] # (Auto) 0.3 (0.1-1.2) X10*3/uL Eos # (Auto) 0.0 (0.0-0.4) X10*3/uL Baso # (Auto) 0.0 (0.0-0.2) X10*3/uL Abs Immat Gran (auto) 0.00 (0.00-0.03) X10*3/uL Absolute Neuts (auto) 3.6 (2.0-8.3) x10*3/uL Absolute Nucleated RBC 0.000 (0.0-0.012) X10*3/uL Nucleated RBC % (auto) 0.0 (0.0-0.2) /100WBC PT 12.0 (11.1-13.3) SEC INR 1.0 (0.9-1.1) APTT 34.6 (26.0-36.8) SEC Sodium 137 (135-145) mmol/L Potassium 4.1 (3.3-5.1) mmol/L Chloride 107 (96-108) mmol/L Carbon Dioxide 24 (22-29) mmol/L Anion Gap 10 L (12-20) BUN 13 (9-16) mg/dL Creatinine 0.67 (0.5-1.4) mg/dL Estim Creat Clear Calc 103.5 Estimated GFR > 60 Random Glucose 97 (60-115) mg/dL Calcium 8.8 (8.4-10.2) mg/dL Total Bilirubin 0.7 (0.0-1.0) mg/dL AST 16 (5-31) U/L ALT 12 (0-31) U/L Alkaline Phosphatase 53 (39-117) U/L Troponin I High Sens < 2.7 (<3.5-17.0) ng/L Total Protein 7.2 (6.5-8.0) g/dL Albumin 4.1 (3.5-5.0) g/dL Independent Interpretation I performed an independent interpretation of an: EKG (Heart rate is 60 WI QRS QTC normal diffuse T-wave flattening noted.) Independent Historian Clinical information obtained from an independent historian. History obtained from or confirmed by: Friend External Record Review External record reviewed: Inpatient record Tests considered The following testing was considered but not selected: CT head CTA considered. After discussion with neurology felt that this time not necessary Chronic Conditions Patient?s care impacted by: Hypertension Discharge Plan Discharge Clinical Impression: Occlusion of left vertebral artery Patient Disposition: Admitted As Inpatient Prescriptions: No Action levothyroxine 175 mcg tablet 175 mcg PO MOTUWETHFR@0600 amlodipine-benazepril 5-20 mg capsule 1 cap PO DAILY atenolol 50 mg tablet 50 mg PO DAILY atorvastatin 40 mg Tablet 40 mg PO BEDTIME Qty: 30 3RF clopidogrel 75 mg Tablet 75 mg PO DAILY Qty: 30 3RF aspirin 81 mg Tablet,Delayed Release (Dr/Ec) 81 mg PO DAILY Qty: 30 3RF Print Language: Sinhala
[2024-02-22 20:00] VITALS: BP 134/84; PULSE 58; RESP 16; TEMP 36.8; O2SAT 98
--- NOTE | 2024-02-22 21:47 | PM.IMHP ---
History of Present Illness Date of Service: 02/22/24 Attending physician on admission: Shanell Melendrez Chief Complaint: Dizziness Olamide Barrera is a very pleasant 48 years old woman with past medical history significant for hypothyroidism (s/p radioactive iodine), essential hypertension a recent diagnosis of left vertebral artery occlusion (February 19) presents to the emergency department complaining of reoccurrence of dizziness which she described of being off balance and vertigo. She also reported heart posterior headache radiating to the neck and nausea. She denied acute visual disturbances, vomiting, focal weakness or speech difficulty. Denied toxic habits. Family history is remarkable for pulmonary embolism. Patient was seen in the emergency department on Thursday after she started to have similar symptoms. At that time she underwent a head CT scan and brain MRI remarkable for left vertebral artery occlusion. Her symptoms improved and she was discharged home to start treatment with Plavix, aspirin and statin. In the ED today, she was found to have stable vital signs. Blood workup including CBC, CMP and troponin are unremarkable. Homocysterine level is 7.6. INR, PT and PTT are normal. ECG showed normal sinus rhythm. ED tx: None. Review of Systems Review of Systems: All 12 systems were reviewed and normal except as noted in HPI. [facility] Medical History Hypothyroidism Essential hypertension Social History Household Members: Spouse, Family and Children Housing: House Patient Tobacco Use Status: Never used Tobacco Smoked in Last 30 Days: No Use of substances other than those prescribed or required for medical reasons: No Advance Directives: No Advance Directives Information Provided: No Patient : No service: No Meds Allergies Allergy/AdvReac Type Severity Reaction Status Date / Time No Known Allergies Allergy Verified 02/22/24 15:47 Active Medications: Current Medications Acetaminophen (Acetaminophen 325 Mg Tablet) 975 mg PO Q6H PRN PRN Reason: Pain, Mild (Pain Scale 1-3), fever or headache Melatonin (Melatonin 3 Mg Tablet) 6 mg PO BEDTIME PRN PRN Reason: Insomnia Sodium Chloride (0.9 % Sodium Chloride Flush 3 Ml Syringe) 3 [facility] Home Medications ?Medication ?Instructions ?Recorded ?Confirmed ?Last Taken ?Type amlodipine 5 mg-benazepril 20 mg 1 cap PO DAILY 02/20/24 02/22/24 02/22/24 History capsule atenolol 50 mg tablet 50 mg PO DAILY 02/20/24 02/22/24 02/22/24 History levothyroxine 175 mcg tablet 175 mcg PO FAMILIA@0600 02/20/24 02/22/24 02/22/24 History Physical Exam Vital Signs and Narrative: Vital Signs: Last Vital Signs Temp 98.3 F 02/22/24 20:00 Pulse 58 02/22/24 20:00 Resp 16 02/22/24 20:00 BP 134/84 02/22/24 20:00 Pulse Ox 98 02/22/24 20:00 O2 Del Method Room Air 02/22/24 20:00 BMI result Body Mass Index 31.0 Constitutional - Awake and Alert, No apparent distress. Pleasant. Cooperative. HEENT - PERRL, EOMI. Normal sclerae. Heart - S1S2, RRR, No edema Lungs - Normal lung expansion, Normal respiratory effort, No respiratory distress, CTA bilaterally Extremities - no calf tenderness bilaterally, no swelling Musculoskeletal - Normal inspection, normal ROM Skin - Warm/Dry Neurological - Alert & oriented x3, CN III-XII in tact, 5/5 strength BUE and BLE Psychological - Appropriate affect Results Labs 02/22/24 16:12 02/22/24 16:12 Labs: Laboratory Results - last 24 hr 02/22/24 16:12 MCV 90.2 MCH 32.0 MCHC 35.5 H RDW 11.9 Plt Count 238 MPV 9.2 L Immature Gran % (Auto) 0.0 Neut % (Auto) 69.7 Lymph % (Auto) 23.3 [place] % (Auto) 5.6 Eos % (Auto) 0.8 Baso % (Auto) 0.6 Lymph # (Auto) 1.2 [place] # (Auto) 0.3 Eos # (Auto) 0.0 Baso # (Auto) 0.0 Abs Immat Gran (auto) 0.00 Absolute Neuts (auto) 3.6 Absolute Nucleated RBC 0.000 Nucleated RBC % (auto) 0.0 PT 12.0 INR 1.0 APTT 34.6 Anion Gap 10 L Estim Creat Clear Calc 103.5 Estimated GFR > 60 Random Glucose 97 Calcium 8.8 Total Bilirubin 0.7 AST 16 ALT 12 Alkaline Phosphatase 53 Troponin I High Sens < 2.7 Total Protein 7.2 Albumin 4.1 Assessment and Plan (1) Occlusion of left vertebral artery: Status: Acute (2) Vertigo: Status: Acute Plan Olamide Barrera is a 48 years old woman presents with: Persistent dizziness/vertigo/loss of balance secondary to left vertebral artery occlusion. Observation. Symptomatic therapy with scopolamine patch and Antivert. Continue Plavix, aspirin and statin. Check echocardiogram. Neurology consult. Essential hypertension. Continue atenolol, amlodipine and KEDAR inhibitor. Hypothyroidism. Continue levothyroxine. Quality Stroke Does the patient have a stroke diagnosis?: No VTE Prior VTE?: No VTE Risk Level:: Medical - moderate - high VTE Device Contraindication: Treatment Not Indicated VTE Drug Contraindication: Treatment Not Indicated
[2024-02-22 21:57] VITALS: BP 115/79; PULSE 59; RESP 17; O2SAT 98
[2024-02-22] MEDS: Meclizine HCl 25 MG TABLET PO (22:03)
[2024-02-22] MEDS: Acetaminophen 325 MG TABLET 975 MG PO (22:03)
[2024-02-22] MEDS: Atorvastatin Calcium 40 MG TABLET PO (22:03)
--- NOTE | 2024-02-22 22:12 | PHA.MEDREC ---
Addendum entered by Ernie Del Rio [facility] 02/22/24 22:32: Med rec double checked by [facility] Addendum entered by Ally Oconnell 02/22/24 22:26: spoke to patient and she was able to confirm med list . No change in medication since 02-20-24!! Patient did start new medication. Original Note: Pharmacy Consult ? Medication Reconciliation Pharmacy has completed the medication reconciliation. Patient was just discharged yesterday 02-22-24 utilized claim and discharge packet to confirm med list. New medication on the discharge are Asprin 81 mg daily, Atorvastatin 40 mg at bedtime and Clopidogrel 75 mg daily
[2024-02-22 23:28] VITALS: BP 124/73; PULSE 55; RESP 16; TEMP 36.3; O2SAT 97
[2024-02-22] MEDS: 0.9 % Sodium Chloride Flush 3 ML SYRINGE IVFLUSH (23:41)
[2024-02-23 03:22] VITALS: BP 125/72; PULSE 55; RESP 16; TEMP 36.3; O2SAT 100
[2024-02-23 06:58] LABS: MANUAL DIFF FLAG NO
--- NOTE | 2024-02-23 07:00 | CA_ITS ---
Transthoracic Echocardiogram Patient (Last, First, Middle): Olamide Barrera, Gender: Female Date of : 1975 Age: 48 Procedure Date: 02/23/2024 Procedure Type: Transthoracic Echocardiogram Location: S3E Height: 160.02 cm Weight: 79.38 kg BSA: 1.83 m2 Heart Rate: 61 bpm BP: 125 / 72 mmHg Inspector Hairspring: OSCAR Abraham MD: Shanell Melendrez MD Piece Goods Clerk: Osmany Faria MD Symptoms: Vertebral artery occlusion Study Quality: Adequate ECG Rhythm: Sinus Conclusions: - 1. Hyperdynamic LV systolic function with LVEF of greater than 70% with normal filling pattern 2. Trivial aortic regurgitation 3. No gross pericardial effusion Findings Left Ventricle Normal left ventricular cavity size. There is normal left ventricular wall thickness. The left ventricular systolic function is hyperdynamic. The visually estimated ejection fraction is >70%. Spectral Doppler is indicative of a normal filling pattern. Right Ventricle Normal right ventricular cavity size and systolic function. Atria Both atria are normal in size. Interatrial shunt cannot be excluded. Aortic Valve Normal aortic valve structure and function. There is no aortic valve stenosis. There is trace (trivial) aortic valve regurgitation. Mitral Valve Normal mitral valve structure and function. There is no mitral valve regurgitation. There is no mitral valve stenosis. Pulmonic Valve The pulmonic valve is likely normal. There is trace pulmonic valve regurgitation. Tricuspid Valve Normal tricuspid valve structure. Tricuspid regurgitation envelope is inadequate for calculation of right ventricular systolic pressure. Normal right atrial pressure. Great Vessels All visible segments of the aorta are normal in size. There is no dilatation of the ascending aorta measuring 3.30 cm. Venous The inferior vena cava is normal in size and collapses greater than 50% with inspiration. Pericardium/Pleural There is no evidence of pericardial effusion. Prior Study Comparison No prior study available for comparison. Recommendations, Care & Conclusions Recommend contrast study to evaluate intracardiac shunting. Measurements 2D Linear Measurements IVSd: 0.86 0.6-0.9/0.6-1.0 cm LVIDd: 4.65 3.9-5.3/4.2-5.9 cm LVIDd Index: 2.54 2.4-3.2/2.2-3.1 cm/m2 LVIDs: 2.47 2.0-3.6 cm LVPWd: 0.82 0.7-1.1 cm LA Diam: 3.60 2.7-3.8/3.0-4.0 cm LAIDs Index: 1.97 1.5-2.3 cm/m2 LV Mass: 159.84 67-162/88-224 g LV Mass Index: 87.34 43-95/49-115 g/m2 LVOT Diam: 1.90 3.0+(-)1.3 cm 2D Systolic Function EF 4C: 56.20 >55% EF 2C: 79.70 >55% EF BiP: 71.40 >55% Mitral Valve MV Pk E: 0.91 MV PK A: 0.62 MV Decel Time: 216.00 E/A: 1.50 E'Lateral: 12.40 E'Medial: 10.30 E/E' Med: 8.80 E/E' Lat: 7.30 PHT: 63.00 MVA PHT: 3.49 Decel Graves: 4.20 Aortic Valve AoV Pk Gregorio: 1.40 AoV Mn Gregorio: 1.01 AoV VTI: 0.32 AoV Pk Grad: 8.00 Aov Mn Grad: 5.00 MARYSOL Cont.VTI: 2.15 LVOT LVOT Pk Gregorio: 1.10 LVOT Mn Gregorio: 0.75 LVOT VTI: 0.24 LVOT Pk Grad: 5.00 LVOT Mn Grad: 3.00 LVOT Diam: 1.90 LVOT Area: 2.84 Diastolic Function MV Pk E: 0.91 MV Pk A: 0.62 E/A: 1.50 E'Medial: 10.30 E/E' Med: 8.80 E' Laterial: 12.40 E/E' Lat: 7.30 Right Ventricle TAPSE (mm): 27.70 TVS' Gregorio: 11.30 Tricuspid Valve RA Press: 3.00 Great Vessels Aorta Sinus of Valsalva: 3.20 2.0-3.5 cm Ao Asc: 3.30 2.1-3.4 cm Pulmonary Valve PV Pk Gregorio: 0.94 Peak PV Grad: 4.00 Updated in Other Vendor System with Status of Final Osmany Faria MD electronically signed on 02/23/2024 10:57:26 AM with status of Final
[2024-02-23] MEDS: 0.9 % Sodium Chloride Flush 3 ML SYRINGE IVFLUSH ×3 (07:04→20:04)
[2024-02-23 07:07] LABS: Basophils Absolute Auto 0.1 X10*3/uL (0.0-0.2); Basophils Percent Auto 1.3 % (0-2); Eosinophils Absolute Auto 0.1 X10*3/uL (0.0-0.4); Eosinophils Percent Auto 2.4 % (0-4); Hematocrit 39.9 % (37.0-47.0); Hemoglobin 14.1 g/dl (12.0-16.0); Imm Gran Abs Auto 0.01 X10*3/uL (0.00-0.03); Imm Gran Pct Auto 0.3 % (0.0-0.4); Lymphocytes Absolute Auto 1.5 X10*3/uL (1.2-4.9); Lymphocytes Percent Auto 39.9 % (20-40); Mean Corpuscular HGB Conc 35.3 g/dl (31.0-35.0); Mean Corpuscular Volume 90.5 fL (80.0-98.0); Mean Platelet Volume 9.1 fL (9.4-12.3); Monocytes Absolute Auto 0.3 X10*3/uL (0.1-1.2); Monocytes Percent Auto 8.6 % (2-11); Neutrophils Absolute Auto 1.8 x10*3/uL (2.0-8.3); Neutrophils Percent Auto 47.5 % (45-73); Platelet Count 219 X10*3/uL (160-400); Red Blood Count 4.41 X10*6/uL (4.20-5.50); Red Cell Distribution Width 11.9 % (11.0-16.0); White Blood Count 3.7 X10*3/uL (4.8-10.8)
[2024-02-23 07:27] LABS: Alanine Aminotransferase 10 U/L (0-31); Albumin Level 3.7 g/dL (3.5-5.0); Alkaline Phosphatase 45 U/L (39-117); Anion Gap 11 (12-20); Aspartate Amino Transferase 14 U/L (5-31); Bilirubin Total 0.7 mg/dL (0.0-1.0); Blood Urea Nitrogen 8 mg/dL (9-16); Calcium 9.1 mg/dL (8.4-10.2); Carbon Dioxide 26 mmol/L (22-29); Chloride 106 mmol/L (96-108); Creatinine Clr Calc Pharmacy 103.5; Estimated Glomerular Filt Rate > 60; Glucose Random 82 mg/dL (60-115); Potassium 3.9 mmol/L (3.3-5.1); Sodium 139 mmol/L (135-145); Total Protein 6.6 g/dL (6.5-8.0)
[2024-02-23 07:46] VITALS: BP 141/77; PULSE 63; RESP 18; TEMP 36.6; O2SAT 100
[2024-02-23] MEDS: lisinopriL 20 MG TABLET PO (11:35)
[2024-02-23] MEDS: amLODIPine Besylate 5 MG TABLET PO (11:35)
[2024-02-23] MEDS: Aspirin Enteric Coated 81 MG TABLET.DR PO (11:36)
[2024-02-23] MEDS: Clopidogrel Bisulfate 75 MG TABLET PO (11:36)
[2024-02-23] MEDS: Acetaminophen 325 MG TABLET 975 MG PO ×2 (11:36→22:58)
[2024-02-23 12:00] VITALS: BP 119/77; PULSE 66; RESP 18; TEMP 36.8; O2SAT 97
--- NOTE | 2024-02-23 15:00 | CA_ITS ---
Transthoracic Echocardiogram Patient (Last, First, Middle): Olamide Barrera, Gender: Female Date of : 1975 Age: 48 Procedure Date: 02/23/2024 Procedure Type: Transthoracic Echocardiogram Location: [facility] [place] Height: 160.02 cm Weight: 79.38 kg BSA: 1.83 m2 Heart Rate: bpm BP: 119 / 77 mmHg Pipeline Executive: OSCAR Abraham MD: Nelly Gonzalez MD Mallet Cutter: Osmany Faria MD Symptoms: Bubble study Study Quality: Fair, Limited by order ECG Rhythm: Sinus Conclusions: - No evidence of interatrial shunting Findings Atria There is no evidence of interatrial shunt by agitated saline. Updated in Other Vendor System with Status of Final Osmany Faria MD electronically signed on 02/23/2024 4:27:02 PM with status of Final
[2024-02-23 16:18] VITALS: BP 120/72; PULSE 71; RESP 18; TEMP 36.3; O2SAT 98
--- NOTE | 2024-02-23 16:18 | P.PNIM_ITS ---
Subjective Subjective Date of Service: 02/23/24 Interval History: dizziness Review of Systems seems little improvement dizzniess persistent. Physical Exam 2 Vital Signs: Vital Signs: Last Vital Signs Temp 98.2 F 02/23/24 12:00 Pulse 66 02/23/24 12:00 Resp 18 02/23/24 12:00 BP 119/77 02/23/24 12:00 Pulse Ox 97 02/23/24 12:00 O2 Del Method Room Air 02/23/24 12:00 BMI result Body Mass Index 31.0 Appearance: Alert.? Oriented X3.?dizziness . cvs: rrr, [id number] , no murmur res: clear to auscultation ,no rhonchii or wheezing abd: no rebound or guarding ,nt, bs present. ext pulses present , no cyanosis . neuro: axo3 , nonfocal. Objective Data Active Medications Acetaminophen (Acetaminophen 325 Mg Tablet) 975 mg PO Q6H PRN PRN Reason: Pain, Mild (Pain Scale 1-3), fever or headache Last Admin: 02/23/24 11:36 Dose: 975 mg Documented By: SUMA Amlodipine Besylate (Amlodipine Besylate 5 Mg Tablet) 5 mg PO DAILY [facility] Last Admin: 02/23/24 11:35 Dose: 5 mg Documented By: SUMA Aspirin (Aspirin Enteric Coated 81 Mg Tablet.) 81 mg PO DAILY [facility] Last Admin: 02/23/24 11:36 Dose: 81 mg Documented By: SUMA Atenolol (Atenolol 50 Mg Tablet) 50 mg PO DAILY [facility]; Protocol Atorvastatin Calcium (Atorvastatin Calcium 40 Mg Tablet) 40 mg PO BEDTIME [facility] Clopidogrel Bisulfate (Clopidogrel Bisulfate 75 Mg Tablet) 75 mg PO DAILY [facility] Last Admin: 02/23/24 11:36 Dose: 75 mg Documented By: SUMA Levothyroxine Sodium (Levothyroxine Sodium 175 Mcg Tablet) 175 mcg PO MOTUWETHFR@0600 [facility] Lisinopril (Lisinopril 20 Mg Tablet) 20 mg PO DAILY [facility] Last Admin: 02/23/24 11:35 Dose: 20 mg Documented By: SUMA Melatonin (Melatonin 3 Mg Tablet) 6 mg PO BEDTIME PRN PRN Reason: Insomnia Ondansetron HCl (Ondansetron Hcl 4 Mg/2 Ml Vial) 4 mg IVPUSH Q6H PRN PRN Reason: Nausea and Vomiting Sodium Chloride (0.9 % Sodium Chloride Flush 3 Ml Syringe) 3 ml IVFLUSH QSHIFT EDILIA Last Admin: 02/23/24 15:13 Dose: 3 ml Documented By: SUMA Labs 02/23/24 06:47 02/23/24 06:47 Labs: Laboratory Results - last 24 hr 02/22/24 02/23/24 16:12 06:47 MCV 90.2 90.5 MCH 32.0 32.0 MCHC 35.5 H 35.3 H RDW 11.9 11.9 Plt Count 238 219 MPV 9.2 L 9.1 L Immature Gran % (Auto) 0.0 0.3 Neut % (Auto) 69.7 47.5 Lymph % (Auto) 23.3 39.9 [place] % (Auto) 5.6 8.6 Eos % (Auto) 0.8 2.4 Baso % (Auto) 0.6 1.3 Lymph # (Auto) 1.2 1.5 [place] # (Auto) 0.3 0.3 Eos # (Auto) 0.0 0.1 Baso # (Auto) 0.0 0.1 Abs Immat Gran (auto) 0.00 0.01 Absolute Neuts (auto) 3.6 1.8 L Absolute Nucleated RBC 0.000 0.000 Nucleated RBC % (auto) 0.0 0.0 PT 12.0 INR 1.0 APTT 34.6 Anion Gap 10 L 11 L Estim Creat Clear Calc 103.5 103.5 Estimated GFR > 60 > 60 Random Glucose 97 82 Calcium 8.8 9.1 Total Bilirubin 0.7 0.7 AST 16 14 ALT 12 10 Alkaline Phosphatase 53 45 Troponin I High Sens < 2.7 Total Protein 7.2 6.6 Albumin 4.1 3.7 Assessment and Plan (1) Vertigo: Status: Acute (2) Occlusion of left vertebral artery: Status: Acute Plan 48 years old woman presents with: Persistent dizziness/vertigo/loss of balance secondary to left vertebral artery occlusion. Symptomatic therapy with scopolamine patch and Antivert. Continue Plavix, aspirin and statin. Check echocardiogram. Neurology consult. Essential hypertension. Continue atenolol, amlodipine and KEDAR inhibitor. Hypothyroidism. Continue levothyroxine. ongoing need for stay-patient had persistent dizziness- needs symptomatic treatment, close observation, neurology expert evaluation since history of recent left vertebral artery occlusion. Quality Stroke Does the patient have a stroke diagnosis?: No VTE Prior VTE?: No VTE Risk Level:: Medical - moderate - high VTE Device Contraindication: Treatment Not Indicated VTE Drug Contraindication: Treatment Not Indicated
[2024-02-23 20:00] VITALS: BP 129/79; PULSE 68; RESP 18; TEMP 36.6; O2SAT 97
[2024-02-23] MEDS: Atorvastatin Calcium 40 MG TABLET PO (20:04)
[2024-02-23 23:43] VITALS: BP 108/63; PULSE 61; RESP 18; TEMP 36.6; O2SAT 98
[2024-02-24] VITALS (8 sets, daily range): BP systolic 112–148; BP diastolic 65–92; PULSE 58–75; RESP 16–20; TEMP 36.1–37; O2SAT 96–99
[2024-02-24] MEDS: Levothyroxine Sodium 175 MCG TABLET PO (05:43)
[2024-02-24] MEDS: Acetaminophen 325 MG TABLET 975 MG PO (05:45)
[2024-02-24] MEDS: lisinopriL 20 MG TABLET PO (07:32)
[2024-02-24] MEDS: atenoloL 50 MG TABLET PO (07:32)
[2024-02-24] MEDS: 0.9 % Sodium Chloride Flush 3 ML SYRINGE IVFLUSH ×2 (07:33→14:39)
[2024-02-24] MEDS: amLODIPine Besylate 5 MG TABLET PO (07:33)
[2024-02-24] MEDS: Clopidogrel Bisulfate 75 MG TABLET PO (07:33)
[2024-02-24] MEDS: Aspirin Enteric Coated 81 MG TABLET.DR PO (07:33)
[2024-02-24] MEDS: oxyCODONE HCl Immed Release 5 MG TABLET PO ×2 (08:57→17:32)
--- NOTE | 2024-02-24 11:33 | MHC.CM.PN ---
pt lives with and family has own ride home dc plan home no servies
--- NOTE | 2024-02-24 14:31 | HO.PM.IMPN ---
Subjective Subjective Date of Service: 02/24/24 Interval History: dizziness , neck pain Review of Systems seems similar symptoms anxious Physical Exam Vital Signs: Vital Signs: Last Vital Signs Temp 97.4 F 02/24/24 12:00 Pulse 58 02/24/24 12:00 Resp 18 02/24/24 12:00 BP 112/65 02/24/24 12:00 Pulse Ox 97 02/24/24 12:00 O2 Del Method Room Air 02/24/24 12:00 BMI result Body Mass Index 31.0 Appearance: Alert.? Oriented X3.?dizziness . cvs: rrr, [id number] , no murmur res: clear to auscultation ,no rhonchii or wheezing abd: no rebound or guarding ,nt, bs present. ext pulses present , no cyanosis . neuro: axo3 , nonfocal. neck -has some muscle pain/movements are somewhat limited due to pain , seems anxious Objective Data Active Medications Acetaminophen (Acetaminophen 325 Mg Tablet) 975 mg PO Q6H PRN PRN Reason: Pain, Mild (Pain Scale 1-3), fever or headache Last Admin: 02/24/24 05:45 Dose: 975 mg Documented By: ALAN Amlodipine Besylate (Amlodipine Besylate 5 Mg Tablet) 5 mg PO DAILY [facility] Last Admin: 02/24/24 07:33 Dose: 5 mg Documented By: SUMA Aspirin (Aspirin Enteric Coated 81 Mg Tablet.) 81 mg PO DAILY [facility] Last Admin: 02/24/24 07:33 Dose: 81 mg Documented By: SUMA Atenolol (Atenolol 50 Mg Tablet) 50 mg PO DAILY [facility]; Protocol Last Admin: 02/24/24 07:32 Dose: 50 mg Documented By: SUMA Atorvastatin Calcium (Atorvastatin Calcium 40 Mg Tablet) 40 mg PO BEDTIME [facility] Last Admin: 02/23/24 20:04 Dose: 40 mg Documented By: ALAN Clopidogrel Bisulfate (Clopidogrel Bisulfate 75 Mg Tablet) 75 mg PO DAILY [facility] Last Admin: 02/24/24 07:33 Dose: 75 mg Documented By: SUMA Cyclobenzaprine HCl (Cyclobenzaprine Hcl 5 Mg Tablet) 5 mg PO TID PRN PRN Reason: Pain, Moderate(Pain Scale 4-6) Levothyroxine Sodium (Levothyroxine Sodium 175 Mcg Tablet) 175 mcg PO MOTUWETHFR@0600 [facility] Last Admin: 02/24/24 05:43 Dose: 175 mcg Documented By: LYSGermain Lisinopril (Lisinopril 20 Mg Tablet) 20 mg PO DAILY [facility] Last Admin: 02/24/24 07:32 Dose: 20 mg Documented By: SUMA Melatonin (Melatonin 3 Mg Tablet) 6 mg PO BEDTIME PRN PRN Reason: Insomnia Ondansetron HCl (Ondansetron Hcl 4 Mg/2 Ml Vial) 4 mg IVPUSH Q6H PRN PRN Reason: Nausea and Vomiting Oxycodone HCl (Oxycodone Hcl Immed Release 5 Mg Tablet) 5 mg PO Q4H PRN PRN Reason: Pain, Moderate(Pain Scale 4-6) Last Admin: 02/24/24 08:57 Dose: 5 mg Documented By: SUMA Sodium Chloride (0.9 % Sodium Chloride Flush 3 Ml Syringe) 3 ml IVFLUSH QSHIFT [facility] Last Admin: 02/24/24 07:33 Dose: 3 ml Documented By: SUMA Labs 02/23/24 06:47 02/23/24 06:47 Assessment and Plan (1) Vertigo: Status: Acute (2) Occlusion of left vertebral artery: Status: Acute Plan 48 years old woman presents with: Persistent dizziness/vertigo/loss of balance with hx recent left vertebral artery occlusion. also added ct neck for neck pain-last year neck CT seems like has arthritic changes in the neck. Symptomatic therapy with scopolamine patch and Antivert. Continue Plavix, aspirin and statin. echocardiogram-seems fine . Neurology consult. Essential hypertension. Continue atenolol, amlodipine and KEDAR inhibitor. Hypothyroidism. Continue levothyroxine. ongoing need for stay-patient had persistent dizziness- needs symptomatic treatment, close observation, neurology expert evaluation since history of recent left vertebral artery occlusion. Quality Stroke Does the patient have a stroke diagnosis?: No VTE Prior VTE?: No VTE Risk Level:: Medical - moderate - high VTE Device Contraindication: Treatment Not Indicated VTE Drug Contraindication: Treatment Not Indicated
[2024-02-24] MEDS: iohexoL 350 MG/ML 75 ML INFUS..BTL 70 ML IV (16:33)
[2024-02-24] MEDS: Apixaban 5 MG TABLET PO (18:05)
--- NOTE | 2024-02-24 18:05 | PC.NURSE ---
Bed board notified at 178:52 that MD would like patient transfered to M/T
--- NOTE | 2024-02-24 18:07 | PC.NURSE ---
senior peoplesoft developer called upstairs and notified we need a bed to transfer Pt.
[2024-02-24] MEDS: Atorvastatin Calcium 40 MG TABLET PO (20:54)
[2024-02-24 21:04] LABS: Erythrocyte Sedimentation Rate 2 MM/HR (0-20)
[2024-02-25 03:40] VITALS: BP 138/61; PULSE 59; RESP 20; TEMP 36.3; O2SAT 100
[2024-02-25] MEDS: Levothyroxine Sodium 175 MCG TABLET PO (06:10)
[2024-02-25 07:22] VITALS: BP 125/75; PULSE 68; RESP 16; TEMP 36.1; O2SAT 100
[2024-02-25] MEDS: atenoloL 50 MG TABLET PO (07:55)
[2024-02-25] MEDS: amLODIPine Besylate 5 MG TABLET PO (07:55)
[2024-02-25] MEDS: lisinopriL 20 MG TABLET PO (07:55)
[2024-02-25] MEDS: Apixaban 5 MG TABLET PO (07:55)
[2024-02-25] MEDS: Acetaminophen 325 MG TABLET 975 MG PO (07:55)
[2024-02-25] MEDS: 0.9 % Sodium Chloride Flush 3 ML SYRINGE IVFLUSH ×2 (07:56)
[2024-02-25 10:59] VITALS: BP 116/73; PULSE 59; RESP 16; TEMP 36.1; O2SAT 98
--- NOTE | 2024-02-25 12:11 | PM.NEUROCN ---
History of Present Illness Data of Consult Service Date: 02/25/24 Primary Care Provider: Chay Betts III, MD [facility] Reason for consult: Dizziness and headache 48 years old woman with imaging finding of left vertebral dissection and associated dizziness and pain. She was readmitted and had MRI of brain that did not reveal any acute lesion. Vertebral dissection was noted with few punctate chronic ischemic lesions. Review of Systems Review of Systems: No cold or flu-like illness PMFSH Past Medical History Medical History Hypothyroidism Essential hypertension Social History Social History Household Members: Spouse, Family and Children Housing: House Patient Tobacco Use Status: Never used Tobacco Smoked in Last 30 Days: No Use of substances other than those prescribed or required for medical reasons: No Currently Displaying Signs/Symptoms of Drug Intoxication Withdrawal: No Advance Directives: No Advance Directives Information Provided: No Patient : No service: No Meds Allergies Allergy/AdvReac Type Severity Reaction Status Date / Time No Known Allergies Allergy Verified 02/22/24 15:47 Active Medications: Current Medications Acetaminophen (Acetaminophen 325 Mg Tablet) 975 mg PO Q6H PRN PRN Reason: Pain, Mild (Pain Scale 1-3), fever or headache Last Admin: 02/25/24 07:55 Dose: 975 mg Amlodipine Besylate (Amlodipine Besylate 5 Mg Tablet) 5 mg PO DAILY [facility] Last Admin: 02/25/24 07:55 Dose: 5 mg Apixaban (Apixaban 5 Mg Tablet) 5 mg PO BID [facility] Last Admin: 02/25/24 07:55 Dose: 5 mg Atenolol (Atenolol 50 Mg Tablet) 50 mg PO DAILY [facility]; Protocol Last Admin: 02/25/24 07:55 Dose: 50 mg Atorvastatin Calcium (Atorvastatin Calcium 40 Mg Tablet) 40 mg PO BEDTIME [facility] Last Admin: 02/24/24 20:54 Dose: 40 mg Cyclobenzaprine HCl (Cyclobenzaprine Hcl 5 Mg Tablet) 5 mg PO TID PRN PRN Reason: Pain, Moderate(Pain Scale 4-6) Levothyroxine Sodium (Levothyroxine Sodium 175 Mcg Tablet) 175 mcg PO MOTUWETHFR@0600 [facility] Last Admin: 02/25/24 06:10 Dose: 175 mcg Lisinopril (Lisinopril 20 Mg Tablet) 20 mg PO DAILY [facility] Last Admin: 02/25/24 07:55 Dose: 20 mg Melatonin (Melatonin 3 Mg Tablet) 6 mg PO BEDTIME PRN PRN Reason: Insomnia Ondansetron HCl (Ondansetron Hcl 4 Mg/2 Ml Vial) 4 mg IVPUSH Q6H PRN PRN Reason: Nausea and Vomiting Oxycodone HCl (Oxycodone Hcl Immed Release 5 Mg Tablet) 5 mg PO Q4H PRN PRN Reason: Pain, Moderate(Pain Scale 4-6) Last Admin: 02/24/24 17:32 Dose: 5 mg Sodium Chloride (0.9 % Sodium Chloride Flush 3 Ml Syringe) 3 ml IVFLUSH [facility] Last Admin: 02/25/24 07:56 Dose: 3 ml Home Medications ?Medication ?Instructions ?Recorded ?Confirmed ?Last Taken ?Type amlodipine 5 mg-benazepril 20 mg 1 cap PO DAILY 02/20/24 02/22/24 02/22/24 History capsule atenolol 50 mg tablet 50 mg PO DAILY 02/20/24 02/22/24 02/22/24 History levothyroxine 175 mcg tablet 175 mcg PO MOTUWETHFR@0600 02/20/24 02/22/24 02/22/24 History Physical Exam Vital Signs: Vital Signs: Last Vital Signs Temp 96.9 F 02/25/24 10:59 Pulse 59 02/25/24 10:59 Resp 16 02/25/24 10:59 BP 116/73 02/25/24 10:59 Pulse Ox 98 02/25/24 10:59 O2 Del Method Room Air 02/25/24 10:59 BMI result Body Mass Index 31.0 Neuro: Other: no nystagmus facial asymmetry or dysarthria. No focal weakness. Results Labs 02/23/24 06:47 02/23/24 06:47 Assessment and Plan (1) Vertebral artery dissection: Status: Acute 48 years old woman with left vertebral artery dissection of unknown trigger. Sometime, it could be due to chronic atherosclerotic vascular disease and then minor neck movement resulting in dissection. In any case there is no evidence of brain damage from this vascular lesion. She was reassured and educated in my recommendation is to continue Eliquis for 3 months and add baby aspirin daily with it. After 3 months she should stop Eliquis and continue baby aspirin for 3 more months. I would see her an outpatient in 3 months time. Procedures Date of Service Date of Service: 02/25/24
--- NOTE | 2024-02-25 14:24 | P.DS_ITS ---
DS: Providers Provider Date of Service: 02/25/24 Date of admission: 02/22/24 21:40 Date of discharge: 02/25/24 Primary care physician: Chay Betts III, MD Consults: 02/22/24 21:45 Consult to Neurology Routine Consulting Provider: [facility] Reason for consultation: Left vertebral artery occlusion, persistent vertigo Has provider been notified: No Attending physician on discharge: Nelly Gonzalez Discharging clinician: Nelly Gonzalez DS: Diagnosis Discharge Diagnosis (1) Vertebral artery dissection: Status: Acute DS: Summary Hospital Course Hospital Course: Olamide Barrera is a very pleasant 48 years old woman with past medical history significant for hypothyroidism (s/p radioactive iodine), essential hypertension a recent diagnosis of left vertebral artery occlusion (February 19) presents to the emergency department complaining of reoccurrence of dizziness which she described of being off balance and vertigo. She also reported heart posterior headache radiating to the neck and nausea. She denied acute visual disturbances, vomiting, focal weakness or speech difficulty. Denied toxic habits. Family history is remarkable for pulmonary embolism. Patient was seen in the emergency department on Thursday after she started to have similar symptoms. At that time she underwent a head CT scan and brain MRI remarkable for left vertebral artery occlusion. Her symptoms improved and she was discharged home to start treatment with Plavix, aspirin and statin. In the ED today, she was found to have stable vital signs. Blood workup including CBC, CMP and troponin are unremarkable. Homocysterine level is 7.6. INR, PT and PTT are normal. ECG showed normal sinus rhythm. ED tx: None. Hospital course : 48-year-old female who was recently admitted for left vertebral artery occlusion and dizziness-came to the hospital because having persistent dizziness, headaches and neck pain: Further workup including CTA head and neck, MRI neck, CT cervical spine done, ESR normal, SHIRA pending, started on Tylenol, continue aspirin and Plavix, neurology reviewed imaging and evaluated the patient:workup is possible as vertebral artery dissection( it could be due to chronic atherosclerotic vascular disease and then minor neck movement resulting in dissection. In any case there is no evidence of brain damage from this vascular lesion)seen by neurology recommended start Eliquis for 3 months with with aspirin 81 mg daily, after 3 months stop Eliquis and continue aspirin 81 mg daily for 3 more months. plan: continue Eliquis 5 mg po bid for 3 months and add baby aspirin daily with it. After 3 months she should stop Eliquis and continue baby aspirin for 3 more months. Patient is to follow up with Neurology outpatient. Follow-up with PCP outpatient as well as follow-up SHIRA results also. Above management discussed with the patient and her family at the bedside in detail length they understand and in agreement with the above plan, time spent 40 minute. Time Attestation Total time managing care of this patient today: 40 mintues. Discharge Coordination Time (in mins): 40 min Quality: Safe Use of Opioids Does Pt have an Active Cancer Diagnosis on the Problem List?: No Quality: Stroke Does the patient have a stroke diagnosis?: No Physical Exam Vital Signs: Vital Signs: Last Vital Signs Temp 96.9 F 02/25/24 10:59 Pulse 59 02/25/24 10:59 Resp 16 02/25/24 10:59 BP 116/73 02/25/24 10:59 Pulse Ox 98 02/25/24 10:59 O2 Del Method Room Air 02/25/24 10:59 BMI result Body Mass Index 31.0 Appearance: Alert.? Oriented X3. cvs: rrr, [id number]. res: clear to auscultation ,no rhonchii or wheezing abd: no rebound or guarding ,nt, bs present. ext pulses present , no cyanosis. neuro: axo3 . no nystagmus facial asymmetry or dysarthria. No focal weakness. DS: Data Data Completed and Pending Labs on day of discharge: Laboratory Results - last 24 hr 02/24/24 19:49 ESR 2 Imaging Chest x-ray: Radiologist's impression: ITS Impressions Head/Neck CTA 02/24/24 16:30 IMPRESSION: 1. No acute intracranial findings. 2. There is new eccentric mural thickening with resultant minimal luminal narrowing of the right V2 vertebral artery at the level of C2-C3 (images 280 1998, series 15), suspicious for arterial dissection and intramural hematoma that could be better diagnostically assessed with fat-saturated T1-weighted imaging of the neck. 3. Interval recanalization of previously seen occluded distal left V2 throughout before segments, with residual mild to moderate luminal narrowing at and beyond the left C1 transverse foramen to the dural insertion and of the mid intradural segment related to intramural hematoma. 4. Enlargement of the pulmonary artery can be correlated clinically for pulmonary hypertension. 5. Diminutive thyroid gland which is low density likely from reduced iodine content in the setting of chronic thyroid disease and can be correlated with thyroid function tests. 6. No acute fracture or traumatic subluxation in the cervical spine. 7. Asymmetric severe left C3-C4 facet arthropathy with subchondral cystic/erosive change, cortical irregularity and slight diastasis which may reflect underlying joint effusion. Findings are presumably degenerative/inflammatory in the absence of clinical concern for infection. Brain MRI 02/24/24 16:55 IMPRESSION: No acute infarct. Again noted abnormal flow void of the left vertebral artery vertebral artery with T1 hyperintense mural thickening along the imaged distal left cervical and intradural segments with corresponding diffusion signal abnormality related to acute intramural hematoma in the setting of arterial dissection. Orbits/Face/Neck MRI 02/24/24 18:55 IMPRESSION: There is high T1 signal intensity subacute intramural hematoma along the periphery of the distal V2 and V3 segments of the left vertebral artery as well as the intradural V4 segment of the left vertebral artery in keeping with cervical left vertebral artery dissection with intracranial propagation. echo: Conclusions: - 1. Hyperdynamic LV systolic function with LVEF of greater than 70% with normal filling pattern 2. Trivial aortic regurgitation 3. No gross pericardial effusion Conclusions: - No evidence of interatrial shunting Findings Atria There is no evidence of interatrial shunt by agitated saline Discharge Plan Discharge Anticipated Discharge Date/Time: 02/25/24 14:11 Patient Disposition: Home, Self-Care Discharge Diagnosis: Vertebral artery dissection/ occulsion Referrals: Chay Betts III, MD [Primary Care Provider] - 1 Week Discharge Medications: New acetaminophen 325 mg Tablet 975 mg PO Q6H PRN (Reason: Pain, Mild (Pain Scale 1-3), fever or headache) Qty: 20 0RF Eliquis 5 mg Tablet 5 mg PO BID Qty: 180 0RF cyclobenzaprine 5 mg Tablet 5 mg PO TID PRN (Reason: Pain, Moderate(Pain Scale 4-6)) Qty: 10 0RF Continued levothyroxine 175 mcg tablet 175 mcg PO MOTUWETHFR@0600 amlodipine-benazepril 5-20 mg capsule 1 cap PO DAILY atenolol 50 mg tablet 50 mg PO DAILY atorvastatin 40 mg Tablet 40 mg PO BEDTIME Qty: 30 3RF aspirin 81 mg Tablet,Delayed Release (Dr/Ec) 81 mg PO DAILY Qty: 30 3RF Discontinued clopidogrel 75 mg Tablet 75 mg PO DAILY Qty: 30 3RF Discharge Orders: Discharge Order (Routine); Ordered 02/25/24 Ordered By: Nelly Gonzalez Diet: Advance to usual diet Activity on Discharge: As tolerated Stand Alone Forms: Patient Portal Discharge page Print Language: Tongan Care Plan Goals: 48-year-old female who was recently admitted for left vertebral artery occlusion and dizziness-came to the hospital because having persistent dizziness, headaches and neck pain: Further workup including CTA head and neck, MRI neck, CT cervical spine done, ESR normal, SHIRA pending, started on Tylenol, continue aspirin and Plavix, neurology reviewed imaging and evaluated the patient:workup is possible as vertebral artery dissection, seen by neurology recommended start Eliquis for 3 months with with aspirin 81 mg daily, after 3 months stop Eliquis and continue aspirin 81 mg daily for 3 more months. Patient is to follow up with Neurology outpatient. Follow-up with PCP outpatient as well as follow-up SHIRA results also. Health Concerns: as above. Plan of Treatment: as above. Assessment: as above.
[2024-02-25] MEDS: Aspirin Enteric Coated 81 MG TABLET.DR PO (14:42)
--- NOTE | 2024-02-25 14:59 | MHC.CM.PN ---
Pt has been medically cleared for DC, she faustino go home via family transport, DCP is self care.
[2024-02-25 15:11] VITALS: BP 108/71; PULSE 58; RESP 16; TEMP 36.1; O2SAT 96
[2024-02-29 11:43] LABS: Anti Nuclear Antibody Screen NEGATIVE (NEGATIVE)
== END 2024-02-25 15:37 | disposition home or self-care (01) ==
LOC: HO.ED 20:06 → HO.EDOVER 21:47 → HO.S3 23:04 → HO.IMC 02-24 20:02
PROVIDERS: Physician Assistant; Admitting Provider Internal Medicine; Emergency Provider Emergency Medicine Emergency Medical Services; PCP Internal Medicine; Visit Provider Internal Medicine
DX: I65.02 Occlusion and stenosis of left vertebral artery (principal); R42 Dizziness and giddiness; R51.9 Headache, unspecified; R11.0 Nausea; M79.672 Pain in left foot; R55 Syncope and collapse; E03.9 Hypothyroidism, unspecified; I10 Essential (primary) hypertension; Z79.899 Other long term (current) drug therapy
CPT/HCPCS: 36415; 70496; 70498; 70540; 70551; 72125; 80053; 84484; 85025; 85610; 85652; 85730; 86038; 93005; 93306; 93308; 99222; 99285; Q9957; Q9967

== ENCOUNTER → 2024-02-22 15:47 | Outpatient (BNV) | payer OTHER, SELFPAY | PROVIDERS: Admitting Provider Internal Medicine; Emergency Provider Emergency Medicine Emergency Medical Services; PCP Internal Medicine; Visit Provider Internal Medicine Cardiovascular Disease | DX: R55 Syncope and collapse (principal) | CPT/HCPCS: 93010 ==

== ENCOUNTER 2024-02-22 21:40 | Outpatient (BNV) | payer OTHER, SELFPAY | END 2024-02-24 | PROVIDERS: Admitting Provider Internal Medicine; Emergency Provider Emergency Medicine Emergency Medical Services; PCP Internal Medicine; Visit Provider Radiology Diagnostic Radiology | DX: M54.2 Cervicalgia (principal) | CPT/HCPCS: 72125 ==

== ENCOUNTER 2024-02-22 21:40 | Outpatient (BNV) | payer OTHER, SELFPAY | END 2024-02-23 07:00 | PROVIDERS: Admitting Provider Internal Medicine; Emergency Provider Emergency Medicine Emergency Medical Services; PCP Internal Medicine; Visit Provider Internal Medicine Cardiovascular Disease | DX: I35.1 Nonrheumatic aortic (valve) insufficiency (principal); R93.1 Abnormal findings on diagnostic imaging of heart and coronary circulation | CPT/HCPCS: 93306; 93308 ==

== ENCOUNTER → 2024-02-22 21:40 | Outpatient (BNV) | payer OTHER, SELFPAY | PROVIDERS: Admitting Provider Internal Medicine; Emergency Provider Emergency Medicine Emergency Medical Services; PCP Internal Medicine; Visit Provider Internal Medicine | DX: I65.02 Occlusion and stenosis of left vertebral artery (principal); R42 Dizziness and giddiness | CPT/HCPCS: 99222; 99231; 99232; 99239 ==

== ENCOUNTER → 2024-02-22 21:40 | Outpatient (BNV) | payer OTHER, SELFPAY | PROVIDERS: Admitting Provider Internal Medicine; Emergency Provider Emergency Medicine Emergency Medical Services; PCP Internal Medicine; Visit Provider Psychiatry & Neurology Neurology | DX: I77.74 Dissection of vertebral artery (principal) | CPT/HCPCS: 99222 ==

== ENCOUNTER 2024-11-12 14:31 | Emergency (ER) | payer OTHER, SELFPAY ==
--- NOTE | ~2024-11-12 | US_ITS ---
CLINICAL HISTORY: pain Venous duplex ultrasound right lower extremity COMPARISON: None FINDINGS: The visualized deep veins are fully compressible with normal Doppler color flow and spectral tracings. No popliteal cyst. Contralateral left common femoral vein demonstrates normal flow. IMPRESSION: 1. Negative for right lower extremity deep vein thrombosis. This document has been electronically signed by: Williams Wallace MD on 11/12/2024 16:46:33
[2024-11-12 14:49] VITALS: BP 148/74; PULSE 65; RESP 18; TEMP 36.3; O2SAT 98; BMI 31.9
--- NOTE | 2024-11-12 14:53 | ED.GENADULT ---
HPI - General Adult General Chief complaint: Extremity Injury, Lower Stated complaint: r leg pain quest clot Time Seen by Provider: 11/12/24 15:35 Source: patient Mode of arrival: ambulatory Limitations: no limitations History of Present Illness ED Provider: Meg Navarro Aprn HPI narrative: 49 yr old female with a history of vertebral artery dissection who is on aspirin only, hypothyroidism, hypertension presents the ER with complaints of right leg pain since Thursday. Patient reports she initially had pain in the top aspect of her right foot. She noticed several days later that there seemed to be more pain over the right inner calf with some local redness. She denies any injury or trauma. No recent travel. No hormone use. No recent hospitalizations or surgeries. Denies any tick bites/bug bites. The area is not itching, only painful with palpation. There is no reports of fevers, chills, body aches. No personal or family history of blood clot Related Data Home Medications ?Medication ?Instructions ?Recorded ?Confirmed amlodipine 5 mg-benazepril 20 mg 1 cap PO DAILY 02/20/24 02/22/24 capsule atenolol 50 mg tablet 50 mg PO DAILY 02/20/24 02/22/24 levothyroxine 175 mcg tablet 175 mcg PO MOTUWETHFR@0600 02/20/24 02/22/24 Previous Rx's ?Medication ?Instructions ?Recorded aspirin 81 mg tablet,delayed 81 mg PO DAILY #30 tabs 02/21/24 release atorvastatin 40 mg tablet 40 mg PO BEDTIME #30 tabs 02/21/24 acetaminophen 325 mg tablet 975 mg (3 x 325 mg) PO Q6H PRN 02/25/24 Pain, Mild (Pain Scale 1-3), fever or headache #20 tabs apixaban 5 mg tablet (Eliquis) 5 mg PO BID #180 tabs 02/25/24 cyclobenzaprine 5 mg tablet 5 mg PO TID PRN Pain, 02/25/24 Moderate(Pain Scale 4-6) #10 tabs doxycycline monohydrate 100 mg 100 mg PO BID #14 caps 11/12/24 capsule Allergies Allergy/AdvReac Type Severity Reaction Status Date / Time No Known Allergies Allergy Verified 11/12/24 14:52 Review of Systems Review of Systems: Yes all other systems are reviewed and are negative Constitutional: Constitutional: Reports no additional constitutional complaints, Denies body ache(s), Denies chills, Denies fever(s), Denies headache(s) and Denies weakness Eyes: Eyes: Reports no additional eye complaints and Denies change in vision ENT: Reports system reviewed and no additional complaints, except as documented, Denies dizziness, Denies headache(s), Denies nasal congestion, Denies nasal discharge and Denies neck pain Cardiovascular: Cardiovascular: Reports no additional cardiovascular complaints, Denies chest pain, Denies leg edema and Denies dyspnea Respiratory: Respiratory: Reports no additional respiratory complaints, Denies cough and Denies dyspnea Gastrointestinal: Gastrointestinal: Reports no additional gastrointestinal complaints, Denies abdominal pain, Denies diarrhea, Denies nausea and Denies vomiting Genitourinary: Genitourinary: Reports no additional female genitourinary complaints and Denies urinary incontinence Musculoskeletal: Musculoskeletal: Reports no additional musculoskeletal complaints, Denies back pain, Denies arthralgias, Denies joint swelling, Denies neck pain, Denies numbness and Denies tingling Integumentary/Breasts: Skin/Breast: Reports system reviewed and no additional complaints, except as docu, Reports swelling, Reports erythema and Denies rash Neurologic: Reports system reviewed and no additional complaints, except as documented, Denies Abnormal speech present, Denies dizziness, Denies headache(s), Denies numbness, Denies tingling and Denies weakness PMFSH Past Medical History Attestation statement: The following information was validated with the patient. Source: old records reviewed and nursing notes reviewed Medical History Occlusion of left vertebral artery Hypothyroidism Essential hypertension Social History Social History Household Members: Spouse, Family and Children Housing: House Patient Tobacco Use Status: Never used Tobacco service: No Physical Exam ED Vital Signs: Vital Signs - 24 hr 11/12/24 14:49 Temperature 97.4 F Pulse Rate 65 Respiratory Rate 18 Blood Pressure 148/74 H Pulse Oximetry 98 Oxygen Delivery Method Room Air BMI result Body Mass Index 31.9 Const General: cooperative, healthy appearing, comfortable and no acute distress Orientation/consciousness: patient oriented x3 Limitations: no limitations HENMT Head: Yes normal to inspection Ears: hearing grossly normal bilaterally General nose exam: Normal external nose present Face and sinus: Yes normal facial exam Mouth: Normal oral and palatal mucosa present Throat: Yes posterior oropharynx normal Eyes General: appearance normal, both eyes and all related structures Pupils: Equal, round and reactive pupils present Neck Neck: Yes normal visual inspection Chest Chest palpation & inspection: normal inspection of the chest Resp Effort & Inspection: normal respiratory effort Auscultation: clear to auscultation bilaterally Cardio Rate: regular rate Rhythm: regular rhythm Peripheral pulses: Peripheral pulses 2+ throughout GI Inspection: Yes normal to inspection Palpation (GI): Soft to palpation and nontender Auscultation: normal bowel sounds Back/Spine/Pelvis Thoracic/Lumbar Spine: thoracic and lumbar spine normal to inspection Skin General skin exam: no rashes or lesions noted Neuro General: patient oriented x3, no focal motor deficits and normal sensation to monofilament Cranial nerves: Yes Equal, round and reactive pupils present Cognition (Neuro): normal cognition Speech: No Abnormal speech present Gait exam (Neuro): Normal gait present Motor exam (neuro): 5/5 motor strength present throughout Extrem Other: 2+ DP and PT pulses. Normal sensation. Full range of motion both actively and passively of the right lower extremity. I do not appreciate any swelling. There is no posterior calf tenderness. Over the medial right calf there is a area the size of a nickel that has some erythema and swelling. There is no surrounding erythema. There is no pain I can reproduce on palpation General: Yes normal to inspection Course Course Course Narrative: RME, this is a rapid medical exam performed by Rogre Muniz please refer to primary provider for complete H&P- 49-year-old female with history of vertebral artery dissection about 9 months ago presents for evaluation of atraumatic right leg pain. She discontinued her Eliquis about 1 week ago and has had atraumatic right calf pain since. Plan for ultrasound of the right lower leg. Medical Decision Making Medical Decision Making MDM Narrative: 49 yr old female with a history of vertebral artery dissection who is on aspirin only presents the ER with complaints of right leg pain since Thursday. Patient reports she initially had pain in the top aspect of her right foot. She noticed several days later that there seemed to be more pain over the right inner calf with some local redness. She denies any injury or trauma. No recent travel. No hormone use. No recent hospitalizations or surgeries. Denies any tick bites/bug bites. The area is not itching, only painful with palpation. There is no reports of fevers, chills, body aches. No personal or family history of blood clot 2+ DP and PT pulses. Normal sensation. Full range of motion both actively and passively of the right lower extremity. I do not appreciate any swelling. There is no posterior calf tenderness. Over the medial right calf there is a area the size of a nickel that has some erythema and swelling. There is no surrounding erythema. There is no pain I can reproduce on palpation I have low suspicion for DVT. The area is very small and I have low suspicion for cellulitis, deeper space abscess, necrotizing fasciitis. ?insect bite but patient can not recall anything. The area was marked by the patient before coming into the emergency room. I recommend she keep an eye on the area and if she develop any increasing swelling or redness she start taking the oral antibiotic that I have prescribed. Reviewed worrisome signs and symptoms of when to return to the emergency room. Comfortable plan for discharge home Differential Diagnosis Differential Diagnoses: The differential diagnosis associated with the presentation includes See discussion above Admission/Observation Consideration of admission/observation: Escalation of care including admission/observation considered Independent Interpretation I performed an independent interpretation of an: Ultrasound Interpretation: I independently reviewed the ultrasound agree with the radiology report Radiology Impression Discussion of test interpretation with radiology: I have reviewed the radiologist's reading. Radiologist Impression: [place] [id number] Ultrasound Report Signed Patient: Olamide Barrera MR#: [id number] : 1975 Acct:[id number] Age/Sex: 49 / F ADM Date: 11/12/24 Loc: .ED Attending Dr: Ordering Physician: Freddy Muniz Date of Service: 11/12/24 Procedure(s): US venous duplex LE RT Accession Number(s): [id number] cc: Chay Betts III, MD; Freddy Muniz~ CLINICAL HISTORY: pain Venous duplex ultrasound right lower extremity COMPARISON: None FINDINGS: The visualized deep veins are fully compressible with normal Doppler color flow and spectral tracings. No popliteal cyst. Contralateral left common femoral vein demonstrates normal flow. IMPRESSION: 1. Negative for right lower extremity deep vein thrombosis. This document has been electronically signed by: Williams Wallace MD on 11/12/2024 16:46:33 Prescription Management I considered prescription management with: Pain Medication and Antibiotic Discharge Plan Discharge Clinical Impression: Leg pain Patient Disposition: Home, Self-Care Instructions: Leg Pain (ED) Prescriptions: New doxycycline monohydrate 100 mg capsule 100 mg PO BID Qty: 14 0RF No Action Eliquis 5 mg Tablet 5 mg PO BID Qty: 180 0RF acetaminophen 325 mg Tablet 975 mg PO Q6H PRN (Reason: Pain, Mild (Pain Scale 1-3), fever or headache) Qty: 20 0RF cyclobenzaprine 5 mg Tablet 5 mg PO TID PRN (Reason: Pain, Moderate(Pain Scale 4-6)) Qty: 10 0RF levothyroxine 175 mcg tablet 175 mcg PO MOTUWETHFR@0600 amlodipine-benazepril 5-20 mg capsule 1 cap PO DAILY atenolol 50 mg tablet 50 mg PO DAILY atorvastatin 40 mg Tablet 40 mg PO BEDTIME Qty: 30 3RF aspirin 81 mg Tablet,Delayed Release (Dr/Ec) 81 mg PO DAILY Qty: 30 3RF Referrals: Chay Betts III, MD [Primary Care Provider] - 1 week Print Language: Greenlandic
--- NOTE | 2024-11-12 15:40 | PC.NURSE ---
ambulated to bed independently with steady gait, ultrasound at bedside
[2024-11-12 17:08] VITALS: BP 118/73; PULSE 59; RESP 18; TEMP 36.7; O2SAT 98
[2024-11-12 17:30] VITALS: BP 118/73; PULSE 59; RESP 18; TEMP 36.7; O2SAT 98
== END 2024-11-12 17:30 | disposition home or self-care (01) ==
PROVIDERS: Emergency Provider Emergency Medicine; PCP Internal Medicine
DX: M79.604 Pain in right leg (principal); R60.0 Localized edema; Z79.899 Other long term (current) drug therapy
CPT/HCPCS: 93971; 99282; 99284

== ENCOUNTER → 2024-11-12 14:53 | Outpatient (BNV) | payer OTHER, SELFPAY | PROVIDERS: Emergency Provider Emergency Medicine; PCP Internal Medicine; Visit Provider Radiology Diagnostic Radiology | DX: M79.661 Pain in right lower leg (principal) | CPT/HCPCS: 93971 ==